=== PATIENT | female | born 1960 | race Caucasian/White ===

== ENCOUNTER 2016-08-28 11:50 | Inpatient (IN) | payer OTHER ==
[2016-08-28 14:58] VITALS: BMI 26.3
--- NOTE | 2016-08-28 15:22 | HP ---
COWS - Scale Resting Pulse: 0= [place] 80 or Below Sweatin= Chills/Flushing Restless Observation: 3= Extraneous Movement Pupil Size: 2= Moderately Dilated Bone or Joint Aches: 4=Acute Joint/Muscle Pain Runny Nose/ Eye Tearin= Runny Nose/Eyes GI Upset > 30mins: 0= None Tremor Observation: 2= Slight Tremor Visible Yawning Observation: 1= 1-2x During Session Anxiety or Irritability: 2=Irritable/Anxious Goose Flesh Skin: 0=Smooth Skin COWS Score: 17 CIWA Score - CIWA Score Nausea/Vomitin-No Nausea/No Vomiting Muscle Tremors: 4-Moderate,w/Arms Extend Anxiety: 5 Agitation: 4-Moderately Restless Paroxysmal Sweats: 2 Orientation: 0-Oriented Tacttile Disturbances: 0-None Auditory Disturbances: 0-None Visual Disturbances: 0-None Headache: 0-None Present CIWA-Ar Total Score: 15 Admission [facility] - HPI Chief Complaint: DETOX [place] FOR HEROIN,COCAINE AND ALCOHOL DEPENDENCE Allergies/Adverse Reactions: Allergies Allergy/AdvReac Type Severity Reaction Status Date / Time cefuroxime axetil Allergy Severe Verified 08/28/16 14:52 [From Ceftin] cephalexin monohydrate Allergy Severe Verified 08/28/16 14:52 [From Keflex] moxifloxacin HCl Allergy Severe Verified 08/28/16 14:52 [From Avelox] History of Present Illness: 55 Y/O H/FEMALE WITH A HX OF HEROIN,COCAINE AND ALCOHOL DEPENDENCE SEEKING DETOX [place]. Exam Limitations: No Limitations - Ebola screening Have you traveled outside of the country in the last 21 days: No Have you had contact with anyone from an Ebola affected area: No Have you been sick,other than usual withdrawal symptoms: No Do you have a fever: No - Review of Systems Constitutional: Chills, Night Sweats, Changes in sleep, Unintentional Wgt. Loss EENT: reports: Tearing, Dental Problems (MISSING TEETH/CAVITIES) Respiratory: reports: Shortness of Breath (HX ASTHMA AND COPD), Wheezing Cardiac: reports: No Symptoms Reported GI: reports: Constipated, Indigestion, Abdominal cramping : reports: Frequency Musculoskeletal: reports: Back Pain, Joint Pain, Muscle Pain Integumentary: reports: No Symptoms Reported Neuro: reports: Headache Endocrine: reports: No Symptoms Reported Hematology: reports: No Symptoms Reported Psychiatric: reports: Orientated x3, Anxious, Depressed Other Systems: Reviewed and Negative Patient History - Patient Medical History Hx Anemia: No Hx Asthma: Yes (MDI) Hx Chronic Obstructive Pulmonary Disease (COPD): Yes (MDI) Hx Cardiac Disorders: No Hx Hypertension: No (???ON/OFF 97/60 ON ADMISSION) Hx Hypercholesterolemia: No HX Cerebrovascular Accident: No Hx Seizures: No Hx Diabetes: Yes (LANTUS 16 UNITS SC; NOVOLOG SLIDING SCALE ) Hx Gastrointestinal Disorders: No Hx Liver Disease: No Hx Genitourinary Disorders: No Hx Sexually Transmitted Disorders: No Hx Renal Disease (ESRD): No Hx Thyroid Disease: No Hx Human Immunodeficiency Virus (HIV): No (NEGATIVE HX) Hx Hepatitis C: No Hx Depression: Yes (TREATED YEARS AGO BUT CURRENTLY IN TREATMENT.DECLINED PSYCH EVAL/F/U.) Hx Suicide Attempt: No (DENIES) Hx Bipolar Disorder: No Hx Schizophrenia: No - Patient Surgical History Past Surgical History: Yes Hx Neurologic Surgery: No Hx Cataract Extraction: No Hx Cardiac Surgery: No Hx Lung Surgery: No Hx Breast Surgery: No Hx Breast Biopsy: No Hx Abdominal Surgery: No Hx Appendectomy: Yes (2009) Hx Cholecystectomy: No Hx Genitourinary Surgery: No Hx Section: No Hx Orthopedic Surgery: Yes (LEFT FOOT SX DUE TO FX 2008) Hx Hysterectomy: No Anesthesia Reaction: No - PPD History Previous Implant?: Yes Documented Results: Positive w/proof Implanted On Prior [facility] Admission?: Yes Date: 06/29/16 Results: TO BE DONE PPD to be Administered?: No - Reproductive History Patient is a Female of Child Bearing Age (11 -55 yrs old): No (MENOPAUSAL WOMAN) LMP comment: 10 YEARS AGO Patient : No - Smoking Cessation Smoking history: Current every day smoker Have you smoked in the past 12 months: Yes Aproximately how many cigarettes per day: 3 Hx Chewing Tobacco Use: No Initiated information on smoking cessation: Yes 'Breaking Loose' booklet given: 08/28/16 - Substance & Tx. History Hx Alcohol Use: Yes (BEER) Hx Substance Use: Yes (HEROIN/COCAINE/MARIJUANA) Substance Use Type: Alcohol, Cocaine, Heroin, Marijuana Hx Substance Use Treatment: Yes ([facility]-DETOX) - Substances Abused Heroin Route: Inhalation Frequency: Daily Amount used: $70 Age of first use: 54 Date of Last Use: 08/28/16 Alcohol Route: Oral Frequency: Daily Amount used: 4O oz. beer Age of first use: 15 Date of Last Use: 08/27/16 Cocaine Route: Inhalation Frequency: Daily Amount used: $20 Age of first use: 54 Date of Last Use: 08/27/16 Marijuana/Hashish Route: Smoking Frequency: 1-2 times per week Amount used: 1 JOINT Age of first use: 14 Date of Last Use: 08/27/16 Family Disease History - Family Disease History Family Disease History: Diabetes: Sister Admission Physical Exam [facility] - Vital Signs Vital Signs: Vital Signs - 24 hr 08/28/16 14:56 Temperature 97.0 F L Pulse Rate 70 Respiratory 18 Rate Blood Pressure 97/60 - Physical General Appearance: Yes: Mild Distress, Anxious HEENTM: Yes: EOMI, Normocephalic, JOEL, Pharynx Normal Respiratory: Yes: Chest Non-Tender, Lungs Clear, Normal Breath Sounds, No Respiratory Distress Neck: Yes: Supple, Trachea in good position Breast: Yes: Breast Exam Deferred Cardiology: Yes: Regular Rhythm, Regular Rate, S1, S2 Abdominal: Yes: Normal Bowel Sounds, Non Tender, Soft Genitourinary: Yes: Other (N/C) Back: Yes: Within Normal Limits Musculoskeletal: Yes: full range of Motion, Gait Steady Extremities: Yes: Normal Range of Motion, Non-Tender Neurological: Yes: tie presser II-XII NML intact, Fully Oriented, Alert, Motor Strength 5/5 Integumentary: Yes: Dry, Warm Lymphatic: Yes: Within Normal Limits - Diagnostic (1) Alcohol dependence with uncomplicated withdrawal Current Visit: Yes Status: Acute (2) Cocaine dependence, uncomplicated Current Visit: Yes Status: Acute (3) Opioid dependence with withdrawal Current Visit: Yes Status: Acute (4) History of COPD Current Visit: Yes Status: Chronic (5) History of asthma Current Visit: Yes Status: Chronic (6) Type 2 diabetes mellitus Current Visit: Yes Status: Chronic Qualifiers: Diabetes mellitus complication status: without complication Cleared for Admission [facility] - Detox or Rehab [facility] Level of Care: Medically Managed Detox Regimen/Protocol: Methadone/Librium [facility] Breath Alcohol Content Breath Alcohol Content: 0 Urine Pregancy Test - Result Urine Test Results: Negative- NO Line Present Urine Drug Screen - Results Drug Screen Negative: No Urine Drug Screen Results: THC-Marijuana, CORAZON-Cocaine, OPI-Opiates, OXY- Oxycodone
[2016-08-28] MEDS ORDERED: guaiFENesin/D-METHORPHAN HB 10 ML UNIT-DOSE CUPS PO PRN (15:36)
[2016-08-28] MEDS ORDERED: P-EPHED 60MG/TRIPROLIDI 2.5MG TABLET PO PRN (15:36)
[2016-08-28] MEDS ORDERED: LOPERAMIDE HCL 2 MG CAPSULE PO PRN (15:36)
[2016-08-28] MEDS ORDERED: ACETAMINOPHEN 325 MG TABLET (FP) PO PRN (15:36)
[2016-08-28] MEDS ORDERED: chlordiazePOXIDE HCL 25 MG CAPSULE PO PRN (15:36)
[2016-08-28] MEDS ORDERED: IBUPROFEN 400 MG TABLET (FP) PO PRN (15:36)
[2016-08-28] MEDS ORDERED: MAGNESIUM HYDROX 2400MG/30ML ORAL SUSPENSION 30 ML CUP PO PRN (15:36)
[2016-08-28] MEDS ORDERED: NICOTINE POLACRILEX 2 MG GUM BC PRN (15:36)
[2016-08-28] MEDS ORDERED: MENTHOL/PHENOL 1 EACH UD MM PRN (15:36)
[2016-08-28] MEDS ORDERED: MAGNESIUM CITRATE 300 ML BOTTLE PO PRN (15:36)
[2016-08-28] MEDS ORDERED: MAG HYDROX/AL HYDROX/SIMETH 30 ML UNIT-DOSE CUP PO PRN (15:36)
[2016-08-28] MEDS ORDERED: hydrOXYzine PAMOATE 25 MG CAPSULE (FP) PO PRN (15:36)
[2016-08-28] MEDS ORDERED: METHADONE HCL 10 MG TABLET (FOR DETOX USE ONLY) PO ONE ×2 (17:00→23:00)
[2016-08-28] MEDS: chlordiazePOXIDE HCL 25 MG CAPSULE PO SCH ×2 (17:36→22:05)
[2016-08-28] MEDS: NICOTINE 14 MG/24 HOURS TOPICAL PATCH TD SCH (17:36)
--- NOTE | 2016-08-28 18:11 | PN ---
[facility] Progress Note Note: received nurse call medical condition of DM II finger stick achs with insulin sliding scale + lantus 16 units continue detox
[2016-08-28] MEDS ORDERED: INSULIN (NOVOLOG) ASPART 100 UNITS/ML 10ML VIAL ONE (21:10)
[2016-08-28] MEDS ORDERED: INSULIN (NOVOLOG MIX 70/30) 100 UNITS/ML MDV SQ ONE (21:10)
[2016-08-28] MEDS: INSULIN DETEMIR 100 UNITS/ML MDV SQ SCH (22:05)
[2016-08-28] MEDS: THIAMINE HCL 100 MG TABLET (FP) PO SCH (22:05)
[2016-08-28] MEDS: INSULIN SLIDING SCALE (NOVOLOG) 1 VIAL SQ SCH (22:11)
[2016-08-28 23:00] LABS: URINE APPEARANCE CLOUDY; URINE BILIRUBIN NEGATIVE (NEGATIVE); URINE BLOOD NEGATIVE (NEGATIVE); URINE COLOR YELLOW; URINE GLUCOSE (UA) 2+ (NEGATIVE); URINE KETONE NEGATIVE (NEGATIVE); URINE NITRITE NEGATIVE (NEGATIVE); URINE PROTEIN NEGATIVE (NEGATIVE); URINE UROBILINOGEN NEGATIVE E.U./dl (0.2-1.0)
[2016-08-28 23:04] LABS: URINE LEUK ESTERASE TRACE (NEGATIVE)
[2016-08-28 23:07] LABS: URINE HYALINE CAST 2 /lpf; URINE MUCUS RARE; URINE RBC <1 /hpf (0-3); URINE WBC 1 /hpf (3-5)
[2016-08-29] MEDS: chlordiazePOXIDE HCL 25 MG CAPSULE PO SCH ×4 (06:28→22:37)
[2016-08-29] MEDS ORDERED: INSULIN (NOVOLOG) ASPART 100 UNITS/ML 10ML VIAL ONE ×4 (07:50→22:44)
[2016-08-29] MEDS: INSULIN SLIDING SCALE (NOVOLOG) 1 VIAL SQ SCH ×4 (07:59→22:46)
--- NOTE | 2016-08-29 09:54 | PN ---
[facility] CIWA - CIWA Score Nausea/Vomitin Muscle Tremors: 3 Anxiety: 3 Agitation: 2 Paroxysmal Sweats: 2 Orientation: 0-Oriented Tacttile Disturbances: 0-None Auditory Disturbances: 0-None Visual Disturbances: 0-None Headache: 1-Very Mild CIWA-Ar Total Score: 13 S COWS - Scale Resting Pulse: 0= [place] 80 or Below Sweatin=Flushed/Facial Moisture Restless Observation: 1= Difficult to Sit Still Pupil Size: 2= Moderately Dilated Bone or Joint Aches: 0= None Runny Nose/ Eye Tearin= None GI Upset > 30mins: 2= Nausea/Diarrhea Tremor Observation of Outstretched Hands: 2= Slight Tremor Visible Yawning Observation: 0= None Anxiety or Irritability: 2=Irritable/Anxious Goose Flesh Skin: 0=Smooth Skin COWS Score: 11 [facility] Progress Note (SOAP) Objective: 08/29/16 09:53 Laboratory Tests 08/28/16 08/28/16 08/28/16 15:14 20:40 22:40 POC Glucometer 396 353 Urine Color Yellow Urine Appearance Cloudy Urine pH 6.0 Ur Specific [place] 1.014 Urine Protein Negative Urine Glucose (UA) 2+ H Urine Ketones Negative Urine Blood Negative Urine Nitrite Negative Urine Bilirubin Negative Urine Urobilinogen Negative Ur Leukocyte Esterase Trace H Urine RBC <1 Urine WBC 1 Ur Epithelial Cells Many Hyaline Casts 2 Urine Mucus Rare 08/29/16 06:30 POC Glucometer 194 Urine Color Urine Appearance Urine pH Ur Specific [place] Urine Protein Urine Glucose (UA) Urine Ketones Urine Blood Urine Nitrite Urine Bilirubin Urine Urobilinogen Ur Leukocyte Esterase Urine RBC Urine WBC Ur Epithelial Cells Hyaline Casts Urine Mucus Vital Signs - 24 hr 08/28/16 08/28/16 08/28/16 14:56 18:00 22:42 Temperature 97.0 F L 98.4 F 99.5 F Pulse Rate 70 76 81 Respiratory 18 18 16 Rate Blood Pressure 97/60 100/67 107/63 08/29/16 08/29/16 08/29/16 00:30 03:30 06:33 Temperature 97.3 F L Pulse Rate 71 Respiratory 18 18 18 Rate Blood Pressure 121/71 Assessment: 08/29/16 09:53 ongoing withdrawal Plan: continue detox protocol
[2016-08-29] MEDS ORDERED: METHADONE HCL 10 MG TABLET (FOR DETOX USE ONLY) PO SCH (10:00)
[2016-08-29] MEDS: PRENATAL VITAMINS W/ FOLIC ACID TABLET (FP) PO SCH (10:11)
[2016-08-29] MEDS: NICOTINE 14 MG/24 HOURS TOPICAL PATCH TD SCH (10:11)
[2016-08-29 10:32] LABS: MCH 27.9 pg (25.7-33.7); MCHC 33.4 g/dl (32.0-36.0); MEAN CELL VOLUME 83.8 fl (80-96); MEAN PLT VOLUME 9.6 fl (7.5-11.1); PLATELET COUNT 212 K/MM3 (134-434); RDW 14.5 % (11.6-15.6); WHITE BLOOD COUNT 6.8 K/mm3 (4.0-10.0)
[2016-08-29 10:35] LABS: ALBUMIN 3.4 g/dl (3.4-5.0); ANION GAP 8 (8-16); BILIRUBIN,TOTAL 0.2 mg/dL (0.2-1.0); CALCIUM 8.7 mg/dL (8.5-10.1); CO2 27 mmol/L (21-32); CREATININE 0.9 mg/dL (0.55-1.02); SGPT/ALT 18 U/L (12-78)
[2016-08-29 10:44] LABS: ALK PHOS 102 U/L (45-117); SGOT/AST 12 U/L (15-37)
[2016-08-29 11:01] LABS: GLUCOSE,RANDOM 307 mg/dL (74-106)
--- NOTE | 2016-08-29 12:38 | EKG ---
Test Reason : Blood Pressure : / mmHG Vent. Rate : 069 BPM Atrial Rate : 069 BPM P-R Int : 162 ms QRS Dur : 086 ms QT Int : 404 ms P-R-T Axes : 025 040 051 degrees QTc Int : 432 ms NORMAL SINUS RHYTHM NONSPECIFIC ST ABNORMALITY ABNORMAL ECG NO PREVIOUS ECGS AVAILABLE Confirmed by WESLEY ART MD ([id number]) on 08/29/2016 12:38:35 PM Referred By: Confirmed By:WESLEY ART MD
[2016-08-29] MEDS: THIAMINE HCL 100 MG TABLET (FP) PO SCH (22:37)
[2016-08-29] MEDS: diphenhydrAMINE HCL 50 MG CAPSULE PO PRN (22:38)
[2016-08-29] MEDS: INSULIN DETEMIR 100 UNITS/ML MDV SQ SCH (22:38)
[2016-08-30] MEDS: chlordiazePOXIDE HCL 25 MG CAPSULE PO SCH ×2 (05:34→10:54)
[2016-08-30] MEDS ORDERED: INSULIN (NOVOLOG) ASPART 100 UNITS/ML 10ML VIAL ONE ×4 (07:22→21:41)
[2016-08-30] MEDS: INSULIN SLIDING SCALE (NOVOLOG) 1 VIAL SQ SCH ×4 (08:03→22:25)
[2016-08-30] MEDS: METHADONE HCL 5 MG TABLET (FOR DETOX USE ONLY) PO SCH (10:53)
[2016-08-30] MEDS: NICOTINE 14 MG/24 HOURS TOPICAL PATCH TD SCH (10:54)
[2016-08-30] MEDS: PRENATAL VITAMINS W/ FOLIC ACID TABLET (FP) PO SCH (10:54)
--- NOTE | 2016-08-30 14:16 | PN ---
S CIWA - CIWA Score Nausea/Vomitin Muscle Tremors: 3 Anxiety: 3 Agitation: 3 Paroxysmal Sweats: 2 Orientation: 0-Oriented Tacttile Disturbances: 0-None Auditory Disturbances: 1-Very Mild Visual Disturbances: 1-Very Mild Sensitivity Headache: 2-Mild CIWA-Ar Total Score: 18 [facility] COWS - Scale Resting Pulse: 0= [place] 80 or Below Sweatin= Chills/Flushing Restless Observation: 3= Extraneous Movement Pupil Size: 1= Pupils >than Normal Bone or Joint Aches: 2= Severe Diffuse Aches Runny Nose/ Eye Tearin= Runny Nose/Eyes GI Upset > 30mins: 2= Nausea/Diarrhea Tremor Observation of Outstretched Hands: 2= Slight Tremor Visible Yawning Observation: 1= 1-2x During Session Anxiety or Irritability: 2=Irritable/Anxious Goose Flesh Skin: 0=Smooth Skin COWS Score: 16 S Progress Note (SOAP) Subjective: ALERT,IRRITABLE,ANXIOUS,INTERRUPTED SLEEP,TREMOR,PAIN IN BODY AND BACK Objective: 08/30/16 14:13 Vital Signs Temperature 97.5 F L 08/30/16 10:00 Pulse Rate 71 08/30/16 10:00 Respiratory Rate 20 08/30/16 10:00 Blood Pressure 134/75 08/30/16 10:00 O2 Sat by Pulse Oximetry (%) EKG NSR,INVERTED T IN 3 NO CHEST PAIN,NO SOB,NO DIZZINESS Laboratory Last Values WBC 6.8 K/mm3 (4.0-10.0) 08/29/16 06:00 RBC 4.52 M/mm3 (3.60-5.2) 08/29/16 06:00 Hgb 12.6 GM/dL (10.7-15.3) 08/29/16 06:00 Hct 37.9 % (32.4-45.2) 08/29/16 06:00 MCV 83.8 fl (80-96) 08/29/16 06:00 MCHC 33.4 g/dl (32.0-36.0) 08/29/16 06:00 RDW 14.5 % (11.6-15.6) 08/29/16 06:00 Plt Count 212 K/MM3 (134-434) 08/29/16 06:00 MPV 9.6 fl (7.5-11.1) 08/29/16 06:00 Sodium 135 mmol/L (136-145) L 08/29/16 06:00 Potassium 3.9 mmol/L (3.5-5.1) 08/29/16 06:00 Chloride 100 mmol/L (98-107) 08/29/16 06:00 Carbon Dioxide 27 mmol/L (21-32) 08/29/16 06:00 Anion Gap 8 (8-16) 08/29/16 06:00 BUN 15 mg/dL (7-18) 08/29/16 06:00 Creatinine 0.9 mg/dL (0.55-1.02) 08/29/16 06:00 Creat Clearance w eGFR > 60 (>60) 08/29/16 06:00 POC Glucometer 268 UNITS (()) 08/30/16 05:34 Random Glucose 307 mg/dL (74-106) H* 08/29/16 06:00 Calcium 8.7 mg/dL (8.5-10.1) 08/29/16 06:00 Total Bilirubin 0.2 mg/dL (0.2-1.0) 08/29/16 06:00 AST 12 U/L (15-37) L 08/29/16 06:00 ALT 18 U/L (12-78) 08/29/16 06:00 Alkaline Phosphatase 102 U/L (45-117) 08/29/16 06:00 Total Protein 7.0 g/dl (6.4-8.2) 08/29/16 06:00 Albumin 3.4 g/dl (3.4-5.0) 08/29/16 06:00 Urine Color Yellow 08/28/16 22:40 Urine Appearance Cloudy 08/28/16 22:40 Urine pH 6.0 (5.0-8.0) 08/28/16 22:40 Ur Specific [place] 1.014 (1.001-1.035) 08/28/16 22:40 Urine Protein Negative (NEGATIVE) 08/28/16 22:40 Urine Glucose (UA) 2+ (NEGATIVE) H 08/28/16 22:40 Urine Ketones Negative (NEGATIVE) 08/28/16 22:40 Urine Blood Negative (NEGATIVE) 08/28/16 22:40 Urine Nitrite Negative (NEGATIVE) 08/28/16 22:40 Urine Bilirubin Negative (NEGATIVE) 08/28/16 22:40 Urine Urobilinogen Negative E.U./dl (0.2-1.0) 08/28/16 22:40 Ur Leukocyte Esterase Trace (NEGATIVE) H 08/28/16 22:40 Urine RBC <1 /hpf (0-3) 08/28/16 22:40 Urine WBC 1 /hpf (3-5) 08/28/16 22:40 Ur Epithelial Cells Many /hpf (FEW) 08/28/16 22:40 Hyaline Casts 2 /lpf 08/28/16 22:40 Urine Mucus Rare 08/28/16 22:40 RPR Titer Nonreactive (NONREACTIVE) 08/29/16 06:00 Assessment: 08/30/16 14:15 WITHDRAWAL SYMPTOM Plan: CONTINUE DETOX,BGM MONITORING WITH INSULIN COVERAGE
[2016-08-30] MEDS: chlordiazePOXIDE 5 MG CAPSULE PO SCH ×2 (17:46→22:24)
[2016-08-30] MEDS: INSULIN DETEMIR 100 UNITS/ML MDV SQ SCH (22:24)
[2016-08-30] MEDS: diphenhydrAMINE HCL 50 MG CAPSULE PO PRN (22:24)
[2016-08-30] MEDS: THIAMINE HCL 100 MG TABLET (FP) PO SCH (22:26)
[2016-08-31] MEDS: chlordiazePOXIDE 5 MG CAPSULE PO SCH ×2 (05:59→10:44)
[2016-08-31] MEDS ORDERED: INSULIN (NOVOLOG) ASPART 100 UNITS/ML 10ML VIAL ONE ×4 (07:34→21:19)
[2016-08-31] MEDS: INSULIN SLIDING SCALE (NOVOLOG) 1 VIAL SQ SCH ×4 (07:39→21:21)
[2016-08-31] MEDS: PRENATAL VITAMINS W/ FOLIC ACID TABLET (FP) PO SCH (10:43)
[2016-08-31] MEDS: METHADONE HCL 5 MG TABLET (FOR DETOX USE ONLY) PO SCH (10:43)
[2016-08-31] MEDS: NICOTINE 14 MG/24 HOURS TOPICAL PATCH TD SCH (10:50)
--- NOTE | 2016-08-31 13:42 | PN ---
[facility] Progress Note (SOAP) Subjective: ALERT,IRRITABLE,INTERRUPTED SLEEP Objective: 08/31/16 13:41 Vital Signs Temperature 98.1 F 08/31/16 10:00 Pulse Rate 77 08/31/16 10:00 Respiratory Rate 18 08/31/16 10:00 Blood Pressure 111/70 08/31/16 10:00 O2 Sat by Pulse Oximetry (%) Assessment: 08/31/16 13:41 WITHDRAWAL SYMPTOM Plan: CONTINUE DETOX
[2016-08-31] MEDS: chlordiazePOXIDE HCL 10 MG CAPSULE PO SCH ×2 (17:45→22:45)
[2016-08-31] MEDS: INSULIN DETEMIR 100 UNITS/ML MDV SQ SCH (21:22)
[2016-08-31] MEDS: THIAMINE HCL 100 MG TABLET (FP) PO SCH (21:23)
[2016-08-31] MEDS: diphenhydrAMINE HCL 50 MG CAPSULE PO PRN (21:24)
[2016-09-01] MEDS: chlordiazePOXIDE HCL 10 MG CAPSULE PO SCH ×2 (06:29→10:20)
[2016-09-01] MEDS: INSULIN SLIDING SCALE (NOVOLOG) 1 VIAL SQ SCH ×4 (07:21→22:40)
[2016-09-01] MEDS ORDERED: INSULIN (NOVOLOG) ASPART 100 UNITS/ML 10ML VIAL ONE ×3 (07:28→17:35)
[2016-09-01] MEDS ORDERED: METHADONE HCL 10 MG TABLET (FOR DETOX USE ONLY) PO SCH (10:00)
[2016-09-01] MEDS: NICOTINE 14 MG/24 HOURS TOPICAL PATCH TD SCH (10:19)
[2016-09-01] MEDS: PRENATAL VITAMINS W/ FOLIC ACID TABLET (FP) PO SCH (10:20)
--- NOTE | 2016-09-01 13:37 | PN ---
S Progress Note (SOAP) Subjective: ALERT,IRRITABLE,INTERRUPTED SLEEP Objective: 09/01/16 13:36 Vital Signs Temperature 98.9 F 09/01/16 10:05 Pulse Rate 90 09/01/16 10:05 Respiratory Rate 18 09/01/16 10:05 Blood Pressure 105/76 09/01/16 10:05 O2 Sat by Pulse Oximetry (%) BGM 269 Assessment: 09/01/16 13:36 WITHDRAWAL SYMPTOM Plan: CONTINUE DETOX,BGM MONITORING WITH INSULIN COVERAGE,DISCHARGE IN AM
[2016-09-01 17:50] VITALS: TEMP 98.2
[2016-09-01] MEDS: THIAMINE HCL 100 MG TABLET (FP) PO SCH (22:39)
[2016-09-01] MEDS: INSULIN DETEMIR 100 UNITS/ML MDV SQ SCH (22:40)
[2016-09-01] MEDS: diphenhydrAMINE HCL 50 MG CAPSULE PO PRN (22:40)
[2016-09-02] MEDS ORDERED: METHADONE HCL 5 MG TABLET (FOR DETOX USE ONLY) PO SCH (06:00)
[2016-09-02 06:59] VITALS: BP 100/59; PULSE 75
[2016-09-02] MEDS ORDERED: INSULIN (NOVOLOG) ASPART 100 UNITS/ML 10ML VIAL ONE (07:16)
[2016-09-02] MEDS: INSULIN SLIDING SCALE (NOVOLOG) 1 VIAL SQ SCH (07:17)
--- NOTE | 2016-09-02 09:38 | DS ---
[facility] Detox Discharge Summary Admission Date: 08/28/16 Discharge Date: 09/02/16 - History Present History: Alcohol Dependence, Cocaine Dependence, Opioid Dependence - Physical Exam Results Vital Signs: Vital Signs Temperature 98.2 F 09/02/16 06:58 Pulse Rate 75 09/02/16 06:58 Respiratory Rate 18 09/02/16 06:58 Blood Pressure 100/59 09/02/16 06:58 O2 Sat by Pulse Oximetry (%) - Treatment Hospital Course: Detox Protocol Followed, Detoxed Safely, Responded well, Discharged Condition Good - Medication Discharge Medications: Ambulatory Orders Insulin Aspart [Novolog] 12 unit SQ TIDCM 06/27/16 Insulin Glargine,Hum.rec.anlog [Lantus Solostar PEN (NF)] 16 units SQ HS - Diagnosis (1) Alcohol dependence with uncomplicated withdrawal Current Visit: Yes Status: Chronic (2) Cocaine dependence, uncomplicated Current Visit: Yes Status: Chronic (3) Opioid dependence with withdrawal Current Visit: Yes Status: Chronic (4) History of asthma Current Visit: Yes Status: Chronic (5) Type 2 diabetes mellitus Current Visit: Yes Status: Chronic Qualifiers: Diabetes mellitus complication status: without complication - AMA Did Patient Leave Against Medical Advice: No
== END 2016-09-02 10:15 | disposition home or self-care (01) | DRG 773 ==
LOC: YASAS 11:50 → Y6N 16:23
PROVIDERS: ADMIT Internal Medicine Addiction Medicine; ATTEND Internal Medicine Addiction Medicine
PROC: HZ2ZZZZ Detoxification Services for Substance Abuse Treatment (ICD-10-PCS; principal; 2016-08-28)
DX: F11.23 Opioid dependence with withdrawal (principal); F10.230 Alcohol dependence with withdrawal, uncomplicated; F14.20 Cocaine dependence, uncomplicated; E11.9 Type 2 diabetes mellitus without complications; Z79.4 Long term (current) use of insulin; J45.909 Unspecified asthma, uncomplicated; J44.9 Chronic obstructive pulmonary disease, unspecified; Z72.0 Tobacco use
CPT/HCPCS: 36415; 80053; 81003; 81015; 85027; 86593; 93005; 93010

== ENCOUNTER 2016-10-20 11:48 | Inpatient (IN) | payer OTHER ==
[2016-10-20 12:04] VITALS: BMI 25.2
--- NOTE | 2016-10-20 15:35 | HP ---
COWS - Scale Resting Pulse: 0= [place] 80 or Below Sweatin= Chills/Flushing Restless Observation: 3= Extraneous Movement Pupil Size: 2= Moderately Dilated Bone or Joint Aches: 4=Acute Joint/Muscle Pain Runny Nose/ Eye Tearin= Nasal Congestion GI Upset > 30mins: 2= Nausea/Diarrhea Tremor Observation: 2= Slight Tremor Visible Yawning Observation: 2= >3x During Session Anxiety or Irritability: 2=Irritable/Anxious Goose Flesh Skin: 0=Smooth Skin COWS Score: 19 CIWA Score - CIWA Score Nausea/Vomitin-Int. Nausea w/Dry Heave Muscle Tremors: 4-Moderate,w/Arms Extend Anxiety: 4-Mod. Anxious/Guarded Agitation: 3 Paroxysmal Sweats: 1-Minimal Palms Moist Orientation: 0-Oriented Tacttile Disturbances: 3-Moderate Itch/Numb/Burn Auditory Disturbances: 0-None Visual Disturbances: 0-None Headache: 0-None Present CIWA-Ar Total Score: 19 Admission [facility] - HPI Chief Complaint: DETOX [place] FOR HEROIN AND ALCOHOL DEPENDENCE Allergies/Adverse Reactions: Allergies Allergy/AdvReac Type Severity Reaction Status Date / Time cefuroxime axetil Allergy Severe fever Verified 10/20/16 12:23 [From Ceftin] cephalexin monohydrate Allergy Severe fever Verified 10/20/16 12:23 [From Keflex] moxifloxacin HCl Allergy Severe Rash Verified 10/20/16 12:23 [From Avelox] History of Present Illness: 55 Y/O H/F WITH A HX OF HEROIN AND ALCOHOL DEPENDENCE SEEKING DETOX [place] Exam Limitations: No Limitations - Ebola screening Have you traveled outside of the country in the last 21 days: No Have you had contact with anyone from an Ebola affected area: No Have you been sick,other than usual withdrawal symptoms: No Do you have a fever: No - Review of Systems Constitutional: Chills, Night Sweats, Changes in sleep, Unintentional Wgt. Loss EENT: reports: Tearing, Nose Congestion, Dental Problems (MISSING TEETH/CAVITIES ) Respiratory: reports: Shortness of Breath (HX ASTHMA), Wheezing Cardiac: reports: Lightheadedness GI: reports: Constipated, Diarrhea, Nausea, Vomiting : reports: Frequency Musculoskeletal: reports: Back Pain, Joint Pain, Muscle Pain Integumentary: reports: Dryness Neuro: reports: Numbness, Tingling, Tremors, Unsteady Gait, Dizziness Endocrine: reports: No Symptoms Reported Hematology: reports: No Symptoms Reported Psychiatric: reports: Orientated x3, Anxious, Depressed Other Systems: Reviewed and Negative Patient History - Patient Medical History Hx Anemia: No Hx Asthma: Yes (MDI) Hx Chronic Obstructive Pulmonary Disease (COPD): Yes Hx Cardiac Disorders: No Hx Hypertension: No Hx Hypercholesterolemia: No HX Cerebrovascular Accident: No Hx Seizures: No Hx Diabetes: Yes (IDDM) Hx Gastrointestinal Disorders: No Hx Liver Disease: No Hx Genitourinary Disorders: No Hx Sexually Transmitted Disorders: No Hx Renal Disease (ESRD): No Hx Thyroid Disease: No Hx Human Immunodeficiency Virus (HIV): No (NEGATIVE HX) Hx Hepatitis C: No Hx Depression: Yes (NOT CURRENTLY ON MEDS) Hx Suicide Attempt: No (DENIES) Hx Bipolar Disorder: No Hx Schizophrenia: No - Patient Surgical History Past Surgical History: Yes Hx Neurologic Surgery: No Hx Cataract Extraction: No Hx Cardiac Surgery: No Hx Lung Surgery: No Hx Breast Surgery: No Hx Breast Biopsy: No Hx Abdominal Surgery: No Hx Appendectomy: Yes (2009) Hx Cholecystectomy: No Hx Genitourinary Surgery: No Hx Section: No Hx Orthopedic Surgery: Yes (LEFT FOOT SX DUE TO FX 2008) Hx Hysterectomy: No Anesthesia Reaction: No - PPD History Previous Implant?: Yes Documented Results: Negative w/proof Implanted On Prior [facility] Admission?: Yes Date: 06/29/16 Results: 0 mm PPD to be Administered?: No - Reproductive History Patient is a Female of Child Bearing Age (11 -55 yrs old): No (MENOPAUSAL WOMAN) LMP comment: OVER TEN YRS AGO Patient : No - Smoking Cessation Smoking history: Current every day smoker Have you smoked in the past 12 months: Yes Aproximately how many cigarettes per day: 3 Hx Chewing Tobacco Use: No Initiated information on smoking cessation: Yes 'Breaking Loose' booklet given: 10/20/16 - Substance & Tx. History Hx Alcohol Use: Yes (BEER) Hx Substance Use: Yes (CRACK/HEROIN) Substance Use Type: Alcohol, Cocaine, Heroin Hx Substance Use Treatment: Yes ([facility]-DETOX) - Substances Abused Heroin Route: Inhalation Frequency: Daily Amount used: 2 bags Age of first use: 53 Date of Last Use: 10/20/16 Crack Route: Smoking Frequency: Daily Amount used: $30 Age of first use: 50 Date of Last Use: 10/19/16 Alcohol-beer Route: Oral Frequency: Daily Amount used: 2 (40 oz.) Age of first use: 16 Date of Last Use: 10/19/16 Family Disease History - Family Disease History Family Disease History: Diabetes: Sister Admission Physical Exam [facility] - Vital Signs Vital Signs: Vital Signs - 24 hr 10/20/16 11:59 Temperature 97.7 F Pulse Rate 70 Respiratory 18 Rate Blood Pressure 111/72 - Physical General Appearance: Yes: Moderate Distress, Irritable, Anxious HEENTM: Yes: EOMI, Normocephalic, JOEL, Pharynx Normal Respiratory: Yes: Chest Non-Tender, Lungs Clear, Normal Breath Sounds, No Respiratory Distress Neck: Yes: No masses,lesions,Nodules, Supple, Trachea in good position Breast: Yes: Breast Exam Deferred Cardiology: Yes: Regular Rhythm, Regular Rate, S1, S2 Abdominal: Yes: Normal Bowel Sounds, Non Tender, Soft Genitourinary: Yes: Other (N/C) Back: Yes: Within Normal Limits Musculoskeletal: Yes: full range of Motion, Gait Steady Extremities: Yes: Normal Range of Motion, Non-Tender Neurological: Yes: tab builder II-XII NML intact, Fully Oriented, Alert, Motor Strength 5/5 Integumentary: Yes: Dry, Warm Lymphatic: Yes: Within Normal Limits - Diagnostic (1) Alcohol dependence with uncomplicated withdrawal Current Visit: Yes Status: Acute (2) Cocaine dependence, uncomplicated Current Visit: Yes Status: Acute (3) History of COPD Current Visit: Yes Status: Chronic (4) History of asthma Current Visit: Yes Status: Chronic (5) Opioid dependence with withdrawal Current Visit: Yes Status: Acute (6) Type 2 diabetes mellitus Current Visit: No Status: Chronic Qualifiers: Diabetes mellitus complication status: without complication Cleared for Admission S - Detox or Rehab [facility] Level of Care: Medically Managed Detox Regimen/Protocol: Methadone/Librium [facility] Breath Alcohol Content Breath Alcohol Content: 0 Urine Pregancy Test - Result Urine Test Results: Negative- NO Line Present Urine Drug Screen - Results Drug Screen Negative: No Urine Drug Screen Results: CORAZON-Cocaine, OPI-Opiates, OXY-Oxycodone
[2016-10-20] MEDS ORDERED: chlordiazePOXIDE HCL 25 MG CAPSULE PO PRN (15:44)
[2016-10-20] MEDS ORDERED: MAGNESIUM HYDROX 2400MG/30ML ORAL SUSPENSION 30 ML CUP PO PRN (15:44)
[2016-10-20] MEDS ORDERED: hydrOXYzine PAMOATE 25 MG CAPSULE (FP) PO PRN (15:44)
[2016-10-20] MEDS ORDERED: MENTHOL/PHENOL 1 EACH UD MM PRN (15:44)
[2016-10-20] MEDS ORDERED: NICOTINE POLACRILEX 2 MG GUM BC PRN (15:44)
[2016-10-20] MEDS ORDERED: MAGNESIUM CITRATE 300 ML BOTTLE PO PRN (15:44)
[2016-10-20] MEDS ORDERED: guaiFENesin/D-METHORPHAN HB 10 ML UNIT-DOSE CUPS PO PRN (15:44)
[2016-10-20] MEDS ORDERED: P-EPHED 60MG/TRIPROLIDI 2.5MG TABLET PO PRN (15:44)
[2016-10-20] MEDS ORDERED: LOPERAMIDE HCL 2 MG CAPSULE PO PRN (15:44)
[2016-10-20] MEDS ORDERED: MAG HYDROX/AL HYDROX/SIMETH 30 ML UNIT-DOSE CUP PO PRN (15:44)
[2016-10-20] MEDS ORDERED: ACETAMINOPHEN 325 MG TABLET (FP) PO PRN (15:44)
[2016-10-20] MEDS ORDERED: diphenhydrAMINE HCL 50 MG CAPSULE PO PRN (15:44)
[2016-10-20] MEDS ORDERED: IBUPROFEN 400 MG TABLET (FP) PO PRN (15:44)
[2016-10-20] MEDS ORDERED: METHADONE HCL 10 MG TABLET (FOR DETOX USE ONLY) PO ONE ×2 (16:15→23:00)
[2016-10-20] MEDS ORDERED: INSULIN (NOVOLOG) ASPART 100 UNITS/ML 10ML VIAL ONE ×2 (17:51→21:50)
[2016-10-20] MEDS: chlordiazePOXIDE HCL 25 MG CAPSULE PO SCH ×2 (17:53→22:34)
[2016-10-20] MEDS: NICOTINE 14 MG/24 HOURS TOPICAL PATCH TD SCH (17:53)
[2016-10-20] MEDS: INSULIN SLIDING SCALE (NOVOLOG) 1 VIAL SQ SCH ×2 (17:54→21:58)
[2016-10-20] MEDS: INSULIN DETEMIR 100 UNITS/ML MDV SQ SCH (21:57)
[2016-10-20] MEDS: THIAMINE HCL 100 MG TABLET (FP) PO SCH (22:33)
[2016-10-20 23:06] LABS: URINE APPEARANCE CLEAR; URINE BILIRUBIN NEGATIVE (NEGATIVE); URINE BLOOD NEGATIVE (NEGATIVE); URINE COLOR YELLOW; URINE GLUCOSE (UA) 1+ (NEGATIVE); URINE KETONE NEGATIVE (NEGATIVE); URINE LEUK ESTERASE NEGATIVE (NEGATIVE); URINE NITRITE NEGATIVE (NEGATIVE); URINE PROTEIN NEGATIVE (NEGATIVE); URINE UROBILINOGEN NEGATIVE E.U./dl (0.2-1.0)
[2016-10-21] MEDS: chlordiazePOXIDE HCL 25 MG CAPSULE PO SCH ×4 (05:30→22:53)
[2016-10-21] MEDS: INSULIN SLIDING SCALE (NOVOLOG) 1 VIAL SQ SCH ×4 (07:50→22:54)
[2016-10-21] MEDS ORDERED: METHADONE HCL 10 MG TABLET (FOR DETOX USE ONLY) PO SCH (10:00)
--- NOTE | 2016-10-21 10:19 | PN ---
[facility] CIWA - CIWA Score Nausea/Vomitin-No Nausea/No Vomiting Muscle Tremors: 4-Moderate,w/Arms Extend Anxiety: 3 Agitation: 4-Moderately Restless Paroxysmal Sweats: 3 Orientation: 0-Oriented Tacttile Disturbances: 0-None Auditory Disturbances: 0-None Visual Disturbances: 0-None Headache: 1-Very Mild CIWA-Ar Total Score: 15 S COWS - Scale Resting Pulse: 0= [place] 80 or Below Sweatin=Flushed/Facial Moisture Restless Observation: 1= Difficult to Sit Still Pupil Size: 0= Normal to Room Light Bone or Joint Aches: 2= Severe Diffuse Aches Runny Nose/ Eye Tearin= Runny Nose/Eyes GI Upset > 30mins: 2= Nausea/Diarrhea Tremor Observation of Outstretched Hands: 2= Slight Tremor Visible Yawning Observation: 2= >3x During Session Anxiety or Irritability: 2=Irritable/Anxious Goose Flesh Skin: 3=Piloerection COWS Score: 18 [facility] Progress Note (SOAP) Subjective: sweats shakes interrupted sleep body aches tired Objective: 10/21/16 10:17 Vital Signs Temperature 98.1 F 10/21/16 10:15 Pulse Rate 76 10/21/16 10:15 Respiratory Rate 16 10/21/16 10:15 Blood Pressure 116/54 10/21/16 10:15 O2 Sat by Pulse Oximetry (%) Laboratory Tests 10/20/16 10/21/16 22:50 06:25 POC Glucometer 249 Urine Color Yellow Urine Appearance Clear Urine pH 6.0 Ur Specific [place] 1.021 Urine Protein Negative Urine Glucose (UA) 1+ H Urine Ketones Negative Urine Blood Negative Urine Nitrite Negative Urine Bilirubin Negative Urine Urobilinogen Negative Ur Leukocyte Esterase Negative labs pending awake/alert lying in bed no acute distress Assessment: 10/21/16 10:18 withdrawals sx Plan: continue detox increase fluids labs pending
[2016-10-21] MEDS: PRENATAL VITAMINS W/ FOLIC ACID TABLET (FP) PO SCH (10:23)
[2016-10-21] MEDS: NICOTINE 14 MG/24 HOURS TOPICAL PATCH TD SCH (10:23)
[2016-10-21 10:40] LABS: MCH 27.2 pg (25.7-33.7); MCHC 32.5 g/dl (32.0-36.0); MEAN CELL VOLUME 83.7 fl (80-96); MEAN PLT VOLUME 9.9 fl (7.5-11.1); PLATELET COUNT 205 K/MM3 (134-434); RDW 14.4 % (11.6-15.6); WHITE BLOOD COUNT 5.6 K/mm3 (4.0-10.0)
[2016-10-21 10:45] LABS: ALBUMIN 3.9 g/dl (3.4-5.0); ALK PHOS 122 U/L (45-117); ANION GAP 9 (8-16); BILIRUBIN,TOTAL 0.3 mg/dL (0.2-1.0); CO2 32 mmol/L (21-32); CREATININE 0.9 mg/dL (0.55-1.02); GLUCOSE,RANDOM 283 mg/dL (74-106); SGOT/AST 14 U/L (15-37); SGPT/ALT 16 U/L (12-78)
--- NOTE | 2016-10-21 11:07 | EKG ---
Test Reason : Blood Pressure : / mmHG Vent. Rate : 075 BPM Atrial Rate : 075 BPM P-R Int : 168 ms QRS Dur : 082 ms QT Int : 396 ms P-R-T Axes : 033 044 046 degrees QTc Int : 442 ms NORMAL SINUS RHYTHM NORMAL ECG WHEN COMPARED WITH ECG OF 28-AUG-2016 17:31, NO SIGNIFICANT CHANGE WAS FOUND Confirmed by PRAMOD GUNDERSON MD ([id number]) on 10/21/2016 11:07:18 AM Referred By: Salvador Schaeffer Confirmed By:PRAMOD GUNDERSON MD
[2016-10-21] MEDS ORDERED: INSULIN (NOVOLOG) ASPART 100 UNITS/ML 10ML VIAL ONE ×3 (11:26→21:34)
--- NOTE | 2016-10-21 13:04 | CONSULT ---
[facility] Psychiatric Consult - Data Date of interview: 10/21/16 Admission source: [facility] Identifying data: Readmission to [facility] for this 55 y/o female seeking detox treatment on for alcohol,heroin and cocaine (crack) dependence.Patient is single,a mother of three,domiciled,unemployed and supported on personal funds (SSI was cancelled according to the patient). Substance Abuse History: - Smoking Cessation. Smoking history: Current every day smoker. Have you smoked in the past 12 months: Yes. Aproximately how many cigarettes per day: 3. Hx Chewing Tobacco Use: No. Initiated information on smoking cessation: Yes. 'Breaking Loose' booklet given: 10/20/16. - Substance & Tx. History. Hx Alcohol Use: Yes (BEER). Hx Substance Use: Yes (CRACK/HEROIN ). Substance Use Type: Alcohol, Cocaine, Heroin. Hx Substance Use Treatment: Yes ([facility]). - Substances Abused. Heroin. Route: Inhalation. Frequency: Daily. Amount used: 2 bags. Age of first use: 53. Date of Last Use : 10/20/16. Crack. Route: Smoking. Frequency: Daily. Amount used: $30. Age of first use: 50. Date of Last Use: 10/19/16. Alcohol-beer. Route: Oral. Frequency: Daily. Amount used: 2 (40 oz.). Age of first use: 16. Date of Last Use: 10/19/16. Confirmed in this session by the patient. Medical History: Bronchial asthma,COPD,dibetes mellitus and history of appendectomy (2009). Psychiatric History: Patient denies. Physical/Sexual Abuse/Trauma History: Patient denies. Additional Comment: Urine Drug Screen Results: CORAZON-Cocaine, OPI-Opiates, OXY- Oxycodone.Noted. Mental Status Exam - Mental Status Exam Alert and Oriented to: Time, Place, Person Cognitive Function: Good Patient Appearance: Well Groomed Mood: Hostile, Irritable Affect: Normal Range Patient Behavior: Passive, Fatigued, Uncooperative Speech Pattern: Clear Voice Loudness: Normal Thought Process: Goal Oriented Thought Disorder: Not Present Hallucinations: Denies Suicidal Ideation: Denies Homicidal Ideation: Denies Insight/Judgement: Poor Sleep: Well Muscle strength/Tone: Normal Gait/Station: Normal Psychiatric Findings - Problem List ([place] 1, 2,3) (1) Alcohol dependence with uncomplicated withdrawal Current Visit: Yes Status: Acute (2) Cocaine dependence, uncomplicated Current Visit: Yes Status: Acute (3) Opioid dependence with withdrawal Current Visit: Yes Status: Acute (4) Nicotine dependence Current Visit: Yes Status: Acute (5) History of COPD Current Visit: Yes Status: Chronic (6) History of asthma Current Visit: Yes Status: Chronic (7) Type 2 diabetes mellitus Current Visit: Yes Status: Chronic Qualifiers: Diabetes mellitus complication status: without complication - Initial Treatment Plan Initial Treatment Plan: Psychoeducation.Detoxification.Observation.
[2016-10-21] MEDS: THIAMINE HCL 100 MG TABLET (FP) PO SCH (22:53)
[2016-10-21] MEDS: INSULIN DETEMIR 100 UNITS/ML MDV SQ SCH (22:53)
[2016-10-22] MEDS: chlordiazePOXIDE HCL 25 MG CAPSULE PO SCH ×2 (05:40→10:50)
[2016-10-22] MEDS: METHADONE HCL 5 MG TABLET (FOR DETOX USE ONLY) PO SCH (10:45)
[2016-10-22] MEDS: PRENATAL VITAMINS W/ FOLIC ACID TABLET (FP) PO SCH (10:45)
[2016-10-22] MEDS: NICOTINE 14 MG/24 HOURS TOPICAL PATCH TD SCH (10:46)
[2016-10-22] MEDS: INSULIN SLIDING SCALE (NOVOLOG) 1 VIAL SQ SCH ×5 (11:01→23:10)
[2016-10-22] MEDS ORDERED: INSULIN (NOVOLOG) ASPART 100 UNITS/ML 10ML VIAL ONE ×3 (11:30→21:38)
[2016-10-22] MEDS ORDERED: TRIMETHOBENZAMIDE HCL 200MG/2ML INJ IM PRN (11:32)
--- NOTE | 2016-10-22 11:36 | PN ---
[facility] CIWA - CIWA Score Nausea/Vomitin-Int. Nausea w/Dry Heave Muscle Tremors: 3 Anxiety: 3 Agitation: 3 Paroxysmal Sweats: 3 Orientation: 0-Oriented Tacttile Disturbances: 1-Very Mild Itch/Numbness Auditory Disturbances: 0-None Visual Disturbances: 0-None Headache: 0-None Present CIWA-Ar Total Score: 17 [facility] COWS - Scale Resting Pulse: 1= NM 81-100 Sweatin=Flushed/Facial Moisture Restless Observation: 1= Difficult to Sit Still Pupil Size: 1= Pupils >than Normal Bone or Joint Aches: 1= Mild Discomfort Runny Nose/ Eye Tearin= Nasal Congestion GI Upset > 30mins: 3= Vomiting/Diarrhea Tremor Observation of Outstretched Hands: 2= Slight Tremor Visible Yawning Observation: 0= None Anxiety or Irritability: 2=Irritable/Anxious Goose Flesh Skin: 0=Smooth Skin COWS Score: 14 S Progress Note (SOAP) Subjective: interrupted sleep, sweats, shakes, nausea, vomiting Objective: 10/22/16 11:34 Vital Signs Temperature 98.6 F 10/22/16 10:20 Pulse Rate 77 10/22/16 10:20 Respiratory Rate 16 10/22/16 10:20 Blood Pressure 158/86 10/22/16 10:20 O2 Sat by Pulse Oximetry (%) Laboratory Tests 10/20/16 10/20/16 10/21/16 06:00 22:50 06:00 WBC 5.6 RBC 4.95 Hgb 13.4 Hct 41.4 MCV 83.7 MCHC 32.5 RDW 14.4 Plt Count 205 MPV 9.9 Sodium Potassium Chloride Carbon Dioxide Anion Gap BUN Creatinine Creat Clearance w eGFR POC Glucometer Random Glucose Calcium Total Bilirubin AST ALT Alkaline Phosphatase Total Protein Albumin Urine Color Yellow Urine Appearance Clear Urine pH 6.0 Ur Specific [place] 1.021 Urine Protein Negative Urine Glucose (UA) 1+ H Urine Ketones Negative Urine Blood Negative Urine Nitrite Negative Urine Bilirubin Negative Urine Urobilinogen Negative Ur Leukocyte Esterase Negative RPR Titer Hepatitis C Antibody 0.3 10/21/16 10/21/16 10/21/16 06:00 06:00 06:25 WBC RBC Hgb Hct MCV MCHC RDW Plt Count MPV Sodium 136 Potassium 3.4 L Chloride 95 L Carbon Dioxide 32 Anion Gap 9 BUN 9 D Creatinine 0.9 Creat Clearance w eGFR > 60 POC Glucometer 249 Random Glucose 283 H Calcium 10.0 Total Bilirubin 0.3 D AST 14 L ALT 16 Alkaline Phosphatase 122 H Total Protein 8.0 Albumin 3.9 Urine Color Urine Appearance Urine pH Ur Specific [place] Urine Protein Urine Glucose (UA) Urine Ketones Urine Blood Urine Nitrite Urine Bilirubin Urine Urobilinogen Ur Leukocyte Esterase RPR Titer Nonreactive Hepatitis C Antibody 10/21/16 10/21/16 10/21/16 11:22 16:38 21:18 WBC RBC Hgb Hct MCV MCHC RDW Plt Count MPV Sodium Potassium Chloride Carbon Dioxide Anion Gap BUN Creatinine Creat Clearance w eGFR POC Glucometer 305 298 270 Random Glucose Calcium Total Bilirubin AST ALT Alkaline Phosphatase Total Protein Albumin Urine Color Urine Appearance Urine pH Ur Specific [place] Urine Protein Urine Glucose (UA) Urine Ketones Urine Blood Urine Nitrite Urine Bilirubin Urine Urobilinogen Ur Leukocyte Esterase RPR Titer Hepatitis C Antibody pt aox3 + vomiting Assessment: 10/22/16 11:34 withdrawal sx; Plan: cont. detox increase fluds tigan 200mg im
[2016-10-22] MEDS ORDERED: POTASSIUM CHLORIDE TABS 20 MEQ TABLET.ER (FP) PO ONE ×2 (13:46→16:00)
[2016-10-22] MEDS ORDERED: ONDANSETRON *ODT* 4 MG TABLET SL PRN (16:31)
[2016-10-22] MEDS ORDERED: ONDANSETRON *ODT* 4 MG TABLET SL ONE (17:15)
[2016-10-22] MEDS: chlordiazePOXIDE 5 MG CAPSULE PO SCH ×2 (17:37→22:58)
[2016-10-22] MEDS: THIAMINE HCL 100 MG TABLET (FP) PO SCH (21:42)
[2016-10-22] MEDS: INSULIN DETEMIR 100 UNITS/ML MDV SQ SCH ×2 (21:42→23:09)
[2016-10-22] MEDS: TRIMETHOBENZAMIDE HCL 200MG/2ML INJ IM PRN (21:46)
[2016-10-23] MEDS ORDERED: INSULIN (NOVOLOG) ASPART 100 UNITS/ML 10ML VIAL ONE ×4 (06:35→21:20)
[2016-10-23] MEDS: INSULIN SLIDING SCALE (NOVOLOG) 1 VIAL SQ SCH ×4 (06:38→22:33)
[2016-10-23] MEDS: chlordiazePOXIDE 5 MG CAPSULE PO SCH ×2 (07:46→11:16)
--- NOTE | 2016-10-23 10:38 | PN ---
[facility] Progress Note (SOAP) Subjective: feeling weak sweats body aches irritable Objective: 10/23/16 10:34 Vital Signs Temperature 99.5 F 10/23/16 09:51 Pulse Rate 90 10/23/16 09:51 Respiratory Rate 16 10/23/16 09:51 Blood Pressure 185/94 10/23/16 09:51 O2 Sat by Pulse Oximetry (%) Laboratory Tests 10/20/16 10/20/16 10/21/16 06:00 22:50 06:00 WBC 5.6 RBC 4.95 Hgb 13.4 Hct 41.4 MCV 83.7 MCHC 32.5 RDW 14.4 Plt Count 205 MPV 9.9 Sodium Potassium Chloride Carbon Dioxide Anion Gap BUN Creatinine Creat Clearance w eGFR POC Glucometer Random Glucose Calcium Total Bilirubin AST ALT Alkaline Phosphatase Total Protein Albumin Urine Color Yellow Urine Appearance Clear Urine pH 6.0 Ur Specific [place] 1.021 Urine Protein Negative Urine Glucose (UA) 1+ H Urine Ketones Negative Urine Blood Negative Urine Nitrite Negative Urine Bilirubin Negative Urine Urobilinogen Negative Ur Leukocyte Esterase Negative RPR Titer Hepatitis C Antibody 0.3 10/21/16 10/21/16 10/21/16 06:00 06:00 06:25 WBC RBC Hgb Hct MCV MCHC RDW Plt Count MPV Sodium 136 Potassium 3.4 L Chloride 95 L Carbon Dioxide 32 Anion Gap 9 BUN 9 D Creatinine 0.9 Creat Clearance w eGFR > 60 POC Glucometer 249 Random Glucose 283 H Calcium 10.0 Total Bilirubin 0.3 D AST 14 L ALT 16 Alkaline Phosphatase 122 H Total Protein 8.0 Albumin 3.9 Urine Color Urine Appearance Urine pH Ur Specific [place] Urine Protein Urine Glucose (UA) Urine Ketones Urine Blood Urine Nitrite Urine Bilirubin Urine Urobilinogen Ur Leukocyte Esterase RPR Titer Nonreactive Hepatitis C Antibody 10/21/16 10/21/16 10/21/16 11:22 16:38 21:18 WBC RBC Hgb Hct MCV MCHC RDW Plt Count MPV Sodium Potassium Chloride Carbon Dioxide Anion Gap BUN Creatinine Creat Clearance w eGFR POC Glucometer 305 298 270 Random Glucose Calcium Total Bilirubin AST ALT Alkaline Phosphatase Total Protein Albumin Urine Color Urine Appearance Urine pH Ur Specific [place] Urine Protein Urine Glucose (UA) Urine Ketones Urine Blood Urine Nitrite Urine Bilirubin Urine Urobilinogen Ur Leukocyte Esterase RPR Titer Hepatitis C Antibody 10/22/16 10/22/1617 10:48 16:21 21:25 WBC RBC Hgb Hct MCV MCHC RDW Plt Count MPV Sodium Potassium Chloride Carbon Dioxide Anion Gap BUN Creatinine Creat Clearance w eGFR POC Glucometer 288 278 336 Random Glucose Calcium Total Bilirubin AST ALT Alkaline Phosphatase Total Protein Albumin Urine Color Urine Appearance Urine pH Ur Specific [place] Urine Protein Urine Glucose (UA) Urine Ketones Urine Blood Urine Nitrite Urine Bilirubin Urine Urobilinogen Ur Leukocyte Esterase RPR Titer Hepatitis C Antibody 10/23/16 06:31 WBC RBC Hgb Hct MCV MCHC RDW Plt Count MPV Sodium Potassium Chloride Carbon Dioxide Anion Gap BUN Creatinine Creat Clearance w eGFR POC Glucometer 353 Random Glucose Calcium Total Bilirubin AST ALT Alkaline Phosphatase Total Protein Albumin Urine Color Urine Appearance Urine pH Ur Specific [place] Urine Protein Urine Glucose (UA) Urine Ketones Urine Blood Urine Nitrite Urine Bilirubin Urine Urobilinogen Ur Leukocyte Esterase RPR Titer Hepatitis C Antibody increased BP low grade temp repeat CBC/CMP reglan 10mg po before meals clonidine 0.1 mg bid Assessment: 10/23/16 10:37 withdrawal sx Plan: continue detox increase fluids f/u repeated labs
[2016-10-23] MEDS: TRIMETHOBENZAMIDE HCL 200MG/2ML INJ IM PRN (11:13)
[2016-10-23] MEDS: PRENATAL VITAMINS W/ FOLIC ACID TABLET (FP) PO SCH (11:16)
[2016-10-23] MEDS: POTASSIUM CHLORIDE TABS 20 MEQ TABLET.ER (FP) PO SCH (11:16)
[2016-10-23] MEDS: METOCLOPRAMIDE HCL 10 MG TABLET (FP) PO SCH ×3 (11:16→22:32)
[2016-10-23] MEDS: cloNIDine HCL 0.1 MG TABLET PO SCH ×2 (11:17→22:33)
[2016-10-23] MEDS: NICOTINE 14 MG/24 HOURS TOPICAL PATCH TD SCH (12:01)
[2016-10-23] MEDS: METHADONE HCL 5 MG TABLET (FOR DETOX USE ONLY) PO SCH (12:01)
[2016-10-23 13:18] LABS: BASOPHIL 0.2 % (0-2.0); MCH 26.6 pg (25.7-33.7); MCHC 32.5 g/dl (32.0-36.0); MEAN CELL VOLUME 81.9 fl (80-96); MEAN PLT VOLUME 9.4 fl (7.5-11.1); NEUTROPHILS 85.2 % (42.8-82.8); PLATELET COUNT 261 K/MM3 (134-434); RDW 14.3 % (11.6-15.6); WHITE BLOOD COUNT 11.4 K/mm3 (4.0-10.0)
[2016-10-23 13:21] LABS: CALCIUM 10.2 mg/dL (8.5-10.1)
[2016-10-23 13:29] LABS: BILIRUBIN,TOTAL 0.4 mg/dL (0.2-1.0); TOT PROT 8.4 g/dl (6.4-8.2)
[2016-10-23] MEDS: LISINOPRIL 5 MG TABLET (FP) PO SCH (15:58)
[2016-10-23] MEDS: chlordiazePOXIDE HCL 10 MG CAPSULE PO SCH ×2 (17:39→22:34)
[2016-10-23] MEDS: THIAMINE HCL 100 MG TABLET (FP) PO SCH (22:32)
[2016-10-23] MEDS: INSULIN DETEMIR 100 UNITS/ML MDV SQ SCH (22:33)
[2016-10-24] MEDS: chlordiazePOXIDE HCL 10 MG CAPSULE PO SCH ×2 (07:32→11:01)
[2016-10-24] MEDS: INSULIN SLIDING SCALE (NOVOLOG) 1 VIAL SQ SCH ×4 (08:00→22:49)
[2016-10-24] MEDS: METOCLOPRAMIDE HCL 10 MG TABLET (FP) PO SCH ×4 (08:00→22:49)
[2016-10-24] MEDS ORDERED: INSULIN (NOVOLOG) ASPART 100 UNITS/ML 10ML VIAL ONE ×2 (08:06→11:37)
[2016-10-24] MEDS ORDERED: METHADONE HCL 10 MG TABLET (FOR DETOX USE ONLY) PO SCH (10:00)
[2016-10-24 10:05] LABS: BASOPHIL 0.3 % (0-2.0); EOSINOPHIL 0.1 % (0-4.5); MCH 26.9 pg (25.7-33.7); MCHC 32.5 g/dl (32.0-36.0); MEAN CELL VOLUME 82.9 fl (80-96); MEAN PLT VOLUME 9.2 fl (7.5-11.1); NEUTROPHILS 60.1 % (42.8-82.8); PLATELET COUNT 240 K/MM3 (134-434); RDW 14.5 % (11.6-15.6); WHITE BLOOD COUNT 10.3 K/mm3 (4.0-10.0)
[2016-10-24] MEDS: PRENATAL VITAMINS W/ FOLIC ACID TABLET (FP) PO SCH (10:44)
[2016-10-24] MEDS: cloNIDine HCL 0.1 MG TABLET PO SCH (10:44)
[2016-10-24] MEDS: LISINOPRIL 5 MG TABLET (FP) PO SCH (10:44)
[2016-10-24] MEDS: POTASSIUM CHLORIDE TABS 20 MEQ TABLET.ER (FP) PO SCH (10:44)
[2016-10-24] MEDS: NICOTINE 14 MG/24 HOURS TOPICAL PATCH TD SCH (10:47)
--- NOTE | 2016-10-24 11:30 | PN ---
[facility] Progress Note (SOAP) Subjective: tired no nausea no vomiting sweats Objective: 10/24/16 11:28 Vital Signs Temperature 98.6 F 10/24/16 06:54 Pulse Rate 87 10/24/16 10:00 Respiratory Rate 18 10/24/16 10:00 Blood Pressure 122/77 10/24/16 10:00 O2 Sat by Pulse Oximetry (%) Laboratory Tests 10/20/16 10/20/16 10/20/16 06:00 12:48 17:50 WBC RBC Hgb Hct MCV MCHC RDW Plt Count MPV Neutrophils % Lymphocytes % Monocytes % Eosinophils % Basophils % Sodium Potassium Chloride Carbon Dioxide Anion Gap BUN Creatinine Creat Clearance w eGFR POC Glucometer 326 312 Random Glucose Calcium Total Bilirubin AST ALT Alkaline Phosphatase Total Protein Albumin Urine Color Urine Appearance Urine pH Ur Specific [place] Urine Protein Urine Glucose (UA) Urine Ketones Urine Blood Urine Nitrite Urine Bilirubin Urine Urobilinogen Ur Leukocyte Esterase RPR Titer Hepatitis C Antibody 0.3 10/20/16 10/20/16 10/21/16 21:44 22:50 06:00 WBC 5.6 RBC 4.95 Hgb 13.4 Hct 41.4 MCV 83.7 MCHC 32.5 RDW 14.4 Plt Count 205 MPV 9.9 Neutrophils % Lymphocytes % Monocytes % Eosinophils % Basophils % Sodium Potassium Chloride Carbon Dioxide Anion Gap BUN Creatinine Creat Clearance w eGFR POC Glucometer 232 Random Glucose Calcium Total Bilirubin AST ALT Alkaline Phosphatase Total Protein Albumin Urine Color Yellow Urine Appearance Clear Urine pH 6.0 Ur Specific [place] 1.021 Urine Protein Negative Urine Glucose (UA) 1+ H Urine Ketones Negative Urine Blood Negative Urine Nitrite Negative Urine Bilirubin Negative Urine Urobilinogen Negative Ur Leukocyte Esterase Negative RPR Titer Hepatitis C Antibody 10/21/16 10/21/16 10/21/16 06:00 06:00 06:25 WBC RBC Hgb Hct MCV MCHC RDW Plt Count MPV Neutrophils % Lymphocytes % Monocytes % Eosinophils % Basophils % Sodium 136 Potassium 3.4 L Chloride 95 L Carbon Dioxide 32 Anion Gap 9 BUN 9 D Creatinine 0.9 Creat Clearance w eGFR > 60 POC Glucometer 249 Random Glucose 283 H Calcium 10.0 Total Bilirubin 0.3 D AST 14 L ALT 16 Alkaline Phosphatase 122 H Total Protein 8.0 Albumin 3.9 Urine Color Urine Appearance Urine pH Ur Specific [place] Urine Protein Urine Glucose (UA) Urine Ketones Urine Blood Urine Nitrite Urine Bilirubin Urine Urobilinogen Ur Leukocyte Esterase RPR Titer Nonreactive Hepatitis C Antibody 10/21/16 10/21/16 10/21/16 11:22 16:38 21:18 WBC RBC Hgb Hct MCV MCHC RDW Plt Count MPV Neutrophils % Lymphocytes % Monocytes % Eosinophils % Basophils % Sodium Potassium Chloride Carbon Dioxide Anion Gap BUN Creatinine Creat Clearance w eGFR POC Glucometer 305 298 270 Random Glucose Calcium Total Bilirubin AST ALT Alkaline Phosphatase Total Protein Albumin Urine Color Urine Appearance Urine pH Ur Specific [place] Urine Protein Urine Glucose (UA) Urine Ketones Urine Blood Urine Nitrite Urine Bilirubin Urine Urobilinogen Ur Leukocyte Esterase RPR Titer Hepatitis C Antibody 10/22/16 10/22/16 10/22/16 10:48 16:21 21:25 WBC RBC Hgb Hct MCV MCHC RDW Plt Count MPV Neutrophils % Lymphocytes % Monocytes % Eosinophils % Basophils % Sodium Potassium Chloride Carbon Dioxide Anion Gap BUN Creatinine Creat Clearance w eGFR POC Glucometer 288 278 336 Random Glucose Calcium Total Bilirubin AST ALT Alkaline Phosphatase Total Protein Albumin Urine Color Urine Appearance Urine pH Ur Specific [place] Urine Protein Urine Glucose (UA) Urine Ketones Urine Blood Urine Nitrite Urine Bilirubin Urine Urobilinogen Ur Leukocyte Esterase RPR Titer Hepatitis C Antibody 10/23/16 10/23/16 10/23/16 06:31 10:55 10:55 WBC 11.4 H D RBC 5.58 H Hgb 14.9 D Hct 45.7 H MCV 81.9 MCHC 32.5 RDW 14.3 Plt Count 261 D MPV 9.4 Neutrophils % 85.2 H Lymphocytes % 8.0 Monocytes % 6.6 Eosinophils % 0.0 Basophils % 0.2 Sodium 136 Potassium 4.0 Chloride 95 L Carbon Dioxide 26 Anion Gap 15 BUN 20 H D Creatinine 1.0 Creat Clearance w eGFR 57.15 POC Glucometer 353 Random Glucose 318 H* Calcium 10.2 H Total Bilirubin 0.4 D AST 19 D ALT 16 Alkaline Phosphatase 114 Total Protein 8.4 H Albumin 4.0 Urine Color Urine Appearance Urine pH Ur Specific [place] Urine Protein Urine Glucose (UA) Urine Ketones Urine Blood Urine Nitrite Urine Bilirubin Urine Urobilinogen Ur Leukocyte Esterase RPR Titer Hepatitis C Antibody 10/23/16 10/23/16 10/23/16 11:24 16:45 20:49 WBC RBC Hgb Hct MCV MCHC RDW Plt Count MPV Neutrophils % Lymphocytes % Monocytes % Eosinophils % Basophils % Sodium Potassium Chloride Carbon Dioxide Anion Gap BUN Creatinine Creat Clearance w eGFR POC Glucometer 316 325 300 Random Glucose Calcium Total Bilirubin AST ALT Alkaline Phosphatase Total Protein Albumin Urine Color Urine Appearance Urine pH Ur Specific [place] Urine Protein Urine Glucose (UA) Urine Ketones Urine Blood Urine Nitrite Urine Bilirubin Urine Urobilinogen Ur Leukocyte Esterase RPR Titer Hepatitis C Antibody 10/24/16 10/24/16 06:21 07:00 WBC 10.3 H RBC 5.37 H Hgb 14.4 Hct 44.5 MCV 82.9 MCHC 32.5 RDW 14.5 Plt Count 240 MPV 9.2 Neutrophils % 60.1 D Lymphocytes % 32.0 D Monocytes % 7.5 Eosinophils % 0.1 D Basophils % 0.3 Sodium Potassium Chloride Carbon Dioxide Anion Gap BUN Creatinine Creat Clearance w eGFR POC Glucometer 235 Random Glucose Calcium Total Bilirubin AST ALT Alkaline Phosphatase Total Protein Albumin Urine Color Urine Appearance Urine pH Ur Specific [place] Urine Protein Urine Glucose (UA) Urine Ketones Urine Blood Urine Nitrite Urine Bilirubin Urine Urobilinogen Ur Leukocyte Esterase RPR Titer Hepatitis C Antibody pt improving awake/alert ambulating no acute distress Assessment: 10/24/16 11:29 withdrawal sx Plan: continue detox increase fluids d/c in am
[2016-10-24 14:59] VITALS: BP 142/74; PULSE 88; TEMP 99.3
--- NOTE | 2016-10-24 17:15 | PN ---
[facility] Progress Note Note: pt last BP 60/30 all sedating medication d/c; visitil, benadryl lisinopril also d/c encouraged hydration.
--- NOTE | 2016-10-24 17:28 | PN ---
S Progress Note Note: spoke with PADMA Greenwood for pt evaluation regarding pt low BP 60/30. pt responsive but very lethargic,tired, weak. pt will be sent to ED.
--- NOTE | 2016-10-24 18:53 | DS ---
[facility] Detox Discharge Summary Admission Date: 10/20/16 Discharge Date: 10/24/16 - History Present History: Alcohol Dependence, Opioid Dependence Pertinent Past History: asthma diabetes ii - Physical Exam Results Vital Signs: Vital Signs Temperature 99.3 F 10/24/16 14:57 Pulse Rate 88 10/24/16 14:57 Respiratory Rate 16 10/24/16 14:57 Blood Pressure 142/74 10/24/16 14:57 O2 Sat by Pulse Oximetry (%) Pertinent Admission Physical Exam Findings: withdrawal sx Laboratory Last Values WBC 10.3 K/mm3 (4.0-10.0) H 10/24/16 07:00 RBC 5.37 M/mm3 (3.60-5.2) H 10/24/16 07:00 Hgb 14.4 GM/dL (10.7-15.3) 10/24/16 07:00 Hct 44.5 % (32.4-45.2) 10/24/16 07:00 MCV 82.9 fl (80-96) 10/24/16 07:00 MCHC 32.5 g/dl (32.0-36.0) 10/24/16 07:00 RDW 14.5 % (11.6-15.6) 10/24/16 07:00 Plt Count 240 K/MM3 (134-434) 10/24/16 07:00 MPV 9.2 fl (7.5-11.1) 10/24/16 07:00 Neutrophils % 60.1 % (42.8-82.8) D 10/24/16 07:00 Lymphocytes % 32.0 % (8-40) D 10/24/16 07:00 Monocytes % 7.5 % (3.8-10.2) 10/24/16 07:00 Eosinophils % 0.1 % (0-4.5) D 10/24/16 07:00 Basophils % 0.3 % (0-2.0) 10/24/16 07:00 Sodium 136 mmol/L (136-145) 10/23/16 10:55 Potassium 4.0 mmol/L (3.5-5.1) 10/23/16 10:55 Chloride 95 mmol/L (98-107) L 10/23/16 10:55 Carbon Dioxide 26 mmol/L (21-32) 10/23/16 10:55 Anion Gap 15 (8-16) 10/23/16 10:55 BUN 20 mg/dL (7-18) H D 10/23/16 10:55 Creatinine 1.0 mg/dL (0.55-1.02) 10/23/16 10:55 Creat Clearance w eGFR 57.15 (>60) 10/23/16 10:55 POC Glucometer 301 UNITS (()) 10/24/16 16:49 Random Glucose 318 mg/dL (74-106) H* 10/23/16 10:55 Calcium 10.2 mg/dL (8.5-10.1) H 10/23/16 10:55 Total Bilirubin 0.4 mg/dL (0.2-1.0) D 10/23/16 10:55 AST 19 U/L (15-37) D 10/23/16 10:55 ALT 16 U/L (12-78) 10/23/16 10:55 Alkaline Phosphatase 114 U/L (45-117) 10/23/16 10:55 Total Protein 8.4 g/dl (6.4-8.2) H 10/23/16 10:55 Albumin 4.0 g/dl (3.4-5.0) 10/23/16 10:55 Urine Color Yellow 10/20/16 22:50 Urine Appearance Clear 10/20/16 22:50 Urine pH 6.0 (5.0-8.0) 10/20/16 22:50 Ur Specific [place] 1.021 (1.001-1.035) 10/20/16 22:50 Urine Protein Negative (NEGATIVE) 10/20/16 22:50 Urine Glucose (UA) 1+ (NEGATIVE) H 10/20/16 22:50 Urine Ketones Negative (NEGATIVE) 10/20/16 22:50 Urine Blood Negative (NEGATIVE) 10/20/16 22:50 Urine Nitrite Negative (NEGATIVE) 10/20/16 22:50 Urine Bilirubin Negative (NEGATIVE) 10/20/16 22:50 Urine Urobilinogen Negative E.U./dl (0.2-1.0) 10/20/16 22:50 Ur Leukocyte Esterase Negative (NEGATIVE) 10/20/16 22:50 RPR Titer Nonreactive (NONREACTIVE) 10/21/16 06:00 Hepatitis C Antibody 0.3 s/co ratio (0.0-0.9) 10/20/16 06:00 lab noted - Treatment Hospital Course: Detox Protocol Followed, Responded well - Medication Discharge Medications: Ambulatory Orders Insulin Aspart [Novolog Flexpen] 0 unit SQ TIDCM 06/27/16 Insulin Glargine,Hum.rec.anlog [Lantus Solostar PEN -] 16 units SQ HS 06/27/16 - Diagnosis (1) Alcohol dependence with uncomplicated withdrawal Current Visit: Yes Status: Acute (2) Nicotine dependence Current Visit: Yes Status: Acute Qualifiers: Nicotine product type: cigarettes Substance use status: in withdrawal Qualified Code(s): F17.213 - Nicotine dependence, cigarettes, with withdrawal (3) Opioid dependence with withdrawal Current Visit: Yes Status: Acute (4) Type 2 diabetes mellitus Current Visit: Yes Status: Acute Qualifiers: Diabetes mellitus complication status: without complication Diabetes mellitus residential insulin use: with residential use Qualified Code(s): E11.9 - Type 2 diabetes mellitus without complications; 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
[2016-10-24] MEDS: INSULIN DETEMIR 100 UNITS/ML MDV SQ SCH (22:49)
[2016-10-24] MEDS: THIAMINE HCL 100 MG TABLET (FP) PO SCH (22:50)
[2016-10-25] MEDS ORDERED: METHADONE HCL 5 MG TABLET (FOR DETOX USE ONLY) PO SCH (06:00)
== END 2016-10-24 23:55 | disposition short-term general hospital (02) | DRG 773 ==
LOC: YASAS 11:48 → Y6N 13:31
PROVIDERS: ADMIT Internal Medicine Addiction Medicine; ATTEND Internal Medicine Addiction Medicine
PROC: HZ2ZZZZ Detoxification Services for Substance Abuse Treatment (ICD-10-PCS; principal; 2016-10-24)
DX: F11.23 Opioid dependence with withdrawal (principal); F10.230 Alcohol dependence with withdrawal, uncomplicated; F17.213 Nicotine dependence, cigarettes, with withdrawal; E11.9 Type 2 diabetes mellitus without complications; Z79.4 Long term (current) use of insulin; J45.909 Unspecified asthma, uncomplicated; J44.9 Chronic obstructive pulmonary disease, unspecified; I95.9 Hypotension, unspecified
CPT/HCPCS: 36415; 80053; 81003; 85025; 85027; 86593; 93005; 93010

== ENCOUNTER 2016-10-24 18:56 | Inpatient (IN) | payer OTHER ==
[2016-10-24] MEDS ORDERED: AZTREONAM 2 GM in DEXTROSE 5%-WATER - 50 ML IVPB ONE (19:10)
[2016-10-24] MEDS ORDERED: SODIUM CHLORIDE 1,000 ML IV STA ×3 (19:10→20:53)
[2016-10-24] MEDS ORDERED: VANCOMYCIN 1,000 MG in DEXTROSE 5%-WATER - 250 ML IVPB ONE (19:10)
[2016-10-24] MEDS ORDERED: methylPREDNISolone NA SUCC 125 MG/2 ML VIAL IVPB ONE (19:10)
[2016-10-24] MEDS ORDERED: VANCOMYCIN 1 GRAM (PRE-DOCKED) 250 ML IVPB ONE (19:24)
[2016-10-24] MEDS ORDERED: methylPREDNISolone NA SUCC 125 MG/2 ML VIAL ONE (19:25)
[2016-10-24 20:13] LABS: VENOUS PH 7.28 (7.32-7.42)
[2016-10-24 20:20] LABS: VENOUS BLOOD GAS HCO3 25.3 meq/L (19-25)
[2016-10-24 20:24] LABS: BASOPHIL 0.3 % (0-2.0); EOSINOPHIL 0.2 % (0-4.5); MCH 27.3 pg (25.7-33.7); MCHC 32.6 g/dl (32.0-36.0); MEAN CELL VOLUME 83.9 fl (80-96); MEAN PLT VOLUME 9.1 fl (7.5-11.1); NEUTROPHILS 58.1 % (42.8-82.8); PLATELET COUNT 158 K/MM3 (134-434); RDW 14.4 % (11.6-15.6); WHITE BLOOD COUNT 8.9 K/mm3 (4.0-10.0)
[2016-10-24 20:36] LABS: INR 1.16 (0.82-1.09); PROTHROMBIN TIME (PATIENT) 12.8 SEC (9.98-11.88)
[2016-10-24 20:39] LABS: ACTIVATED PTT 25.5 SECONDS (26.9-34.4)
[2016-10-24 20:43] LABS: URINE APPEARANCE CLEAR; URINE BILIRUBIN NEGATIVE (NEGATIVE); URINE BLOOD NEGATIVE (NEGATIVE); URINE COLOR LTYELLOW; URINE GLUCOSE (UA) 3+ (NEGATIVE); URINE KETONE NEGATIVE (NEGATIVE); URINE LEUK ESTERASE NEGATIVE (NEGATIVE); URINE NITRITE NEGATIVE (NEGATIVE); URINE UROBILINOGEN NEGATIVE E.U./dl (0.2-1.0)
[2016-10-24 20:47] LABS: ALBUMIN 2.5 g/dl (3.4-5.0); ANION GAP 10 (8-16); BILIRUBIN,TOTAL 0.3 mg/dL (0.2-1.0); CO2 24 mmol/L (21-32); CREATININE 1.5 mg/dL (0.55-1.02); GLUCOSE,RANDOM 245 mg/dL (74-106); SGOT/AST 16 U/L (15-37); SGPT/ALT 15 U/L (12-78); TOT PROT 5.2 g/dl (6.4-8.2)
[2016-10-24 20:50] LABS: ALK PHOS 73 U/L (45-117); TROPONIN I < 0.02 ng/ml (0.00-0.05)
[2016-10-24] MEDS ORDERED: METOCLOPRAMIDE HCL INJECTION 10 MG/2 ML VIAL IVPB ONE (20:57)
--- NOTE | 2016-10-24 21:02 | PDOC ---
History of Present Illness - General History Source: Patient Exam Limitations: No Limitations <Demarcus Belcher - Last Filed: 10/24/16 21:37> - General History Source: Patient, EMS, Other ([facility] records) Exam Limitations: No Limitations - History of Present Illness Initial Comments: 10/24/16 21:09 The patient is a 55 year old female, with a significant past medical history of asthma, diabetes, lupus (noncompliant with steroids), COPD and polysubstance abuse (alcohol/opiates/cocaine), who presents to the emergency department via EMS from [facility] with nausea, vomiting, diarrhea and generalized weakness for the past 3 days. The patient has been at [facility] in detox since . This evening, staff at [facility] noted that the patient was hypotensive (BP: 60/30) and sent the patient to the ED for evaluation secondary. The patient states that her last drug use was 10/20/2016. Since being at detox, the patient has been on 10 mg of Methadone daily. The patient denies fevers or chills. Allergies: Cefuroxime Axetil, Cephalexin Monohydrate, Moxifloxacin HCl. Past Surgical History: Left Foot Surgery s/p fracture (2008); Appendectomy (2009 ). Social History: Current everyday smoker. (Alcohol abuse (beer) - since age 16, 40 oz daily; cocaine abuse - since age 50, daily; heroin abuse - since age 53, daily). See HPI. <Gladys Almendarez - Last Filed: 10/24/16 22:36> - General Chief Complaint: Blood Pressure Problem Stated Complaint: BLOOD PRESSURE PROBLEM Time Seen by Provider: 10/24/16 19:10 Past History - Past Medical History Anemia: No Asthma: Yes (MDI) Cardiac Disorders: No CVA: No COPD: Yes Diabetes: Yes (IDDM) GI Disorders: No Disorders: No HTN: No Hypercholesterolemia: No Kidney Stones: No Liver Disease: No Suicide Attempt (Hx): No (DENIES) Seizures: No Thyroid Disease: No - Surgical History Abdominal Surgery: No Appendectomy: Yes (2009) Cardiac Surgery: No Cholecystectomy: No Lung Surgery: No Neurologic Surgery: No Orthopedic Surgery: Yes (LEFT FOOT SX DUE TO FX 2008) - Reproductive History PID: No - Psycho/Social/Smoking Cessation Hx Anxiety: No Suicidal Ideation: No Smoking History: Current every day smoker Have you smoked in the past 12 months: Yes Number of Cigarettes Smoked Daily: 3 Information on smoking cessation initiated: No 'Breaking Loose' booklet given: 10/20/16 Hx Alcohol Use: Yes Drug/Substance Use Hx: Yes Substance Use Type: Alcohol, Cocaine, Heroin Hx Substance Use Treatment: Yes ([facility]) <Demarcus Belcher - Last Filed: 10/24/16 21:37> <Gladys Amlendarez - Last Filed: 10/24/16 22:36> - Past Medical History Allergies/Adverse Reactions: Allergies Allergy/AdvReac Type Severity Reaction Status Date / Time cefuroxime axetil Allergy Severe fever Verified 10/24/16 19:02 [From Ceftin] cephalexin monohydrate Allergy Severe fever Verified 10/24/16 19:02 [From Keflex] moxifloxacin HCl Allergy Severe Rash Verified 10/24/16 19:02 [From Avelox] Home Medications: Ambulatory Orders Insulin Aspart [Novolog Flexpen] 0 unit SQ TIDCM 06/27/16 Insulin Glargine,Hum.rec.anlog [Lantus Solostar PEN -] 15 units SQ HS 06/27/16 Review of Systems - Review of Systems Able to Perform ROS?: Yes Comments:: 10/24/16 21:08 GENERAL/CONSTITUTIONAL: +Weakness. No fever or chills. HEAD, EYES, EARS, NOSE AND THROAT: No change in vision. No ear pain or discharge. No sore throat. CARDIOVASCULAR: No chest pain or shortness of breath. RESPIRATORY: No cough, wheezing, or hemoptysis. GASTROINTESTINAL: +Nausea, vomiting, diarrhea. No constipation. GENITOURINARY: No dysuria, frequency, or change in urination. MUSCULOSKELETAL: No joint or muscle swelling or pain. No neck or back pain. SKIN: No rash. NEUROLOGIC: No headache, vertigo, loss of consciousness, or change in strength/ sensation. ENDOCRINE: No increased thirst. No abnormal weight change. HEMATOLOGIC/LYMPHATIC: No anemia, easy bleeding, or history of blood clots. ALLERGIC/IMMUNOLOGIC: No hives or skin allergy. <Gladys Almendarez - Last Filed: 10/24/16 22:36> *Physical Exam - Vital Signs Last Vital Signs Temp Pulse Resp BP Pulse Ox 65 20 65/51 100 10/24/16 19:02 10/24/16 19:02 10/24/16 19:02 10/24/16 20:46 <Demarcus Belcher - Last Filed: 10/24/16 21:37> - Vital Signs Last Vital Signs Temp Pulse Resp BP Pulse Ox 65 20 65/51 100 10/24/16 19:02 10/24/16 19:02 10/24/16 19:02 10/24/16 20:46 - Physical Exam Comments: 10/24/16 21:13 GENERAL: Lethargic appearing but awake, alert and fully oriented. HEAD: No signs of trauma. EYES: PERRLA, EOMI, sclera anicteric, conjunctiva clear. ENT: Dry mucosa. Auricles normal inspection, hearing grossly normal, nares patent, oropharynx clear without exudates. NECK: Normal ROM, supple, no lymphadenopathy, JVD, or masses. LUNGS: Breath sounds equal, clear to auscultation bilaterally. No wheezes, and no crackles. HEART: Regular rate and rhythm, normal S1 and S2, no murmurs, rubs or gallops. ABDOMEN: Soft, nontender, normoactive bowel sounds. No guarding, no rebound. No masses. EXTREMITIES: Normal range of motion, no edema. No clubbing or cyanosis. No cords , erythema, or tenderness. NEUROLOGICAL: Cranial nerves II through XII intact. Normal speech, gait deferred. SKIN: Warm, dry, normal turgor, no rashes or lesions noted. <Gladys Almendarez - Last Filed: 10/24/16 22:36> Heart Score/ECG Review #1 10/24/16 21:37 ECG 59, no std/sharri, normal axis, normal interlva,s QTC 483 msec <Demarcus Belcher - Last Filed: 10/24/16 21:37> ED Treatment Course - LABORATORY CBC & Chemistry Diagram: 10/24/16 20:00 10/24/16 20:00 - ADDITIONAL ORDERS Additional order review: Laboratory Results 10/24/16 10/24/16 20:05 20:00 INR 1.16 H PTT (Actin FS) 25.5 L VBG pH 7.28 L POC VBG pCO2 56.2 H POC VBG pO2 23.4 L Mixed VBG HCO3 25.3 H 10/24/16 20:00 RBC 3.88 D MCV 83.9 MCHC 32.6 RDW 14.4 MPV 9.1 Neutrophils % 58.1 Lymphocytes % 31.5 Monocytes % 9.9 Eosinophils % 0.2 D Basophils % 0.3 - RADIOLOGY Radiology Studies Ordered: Category Date Time Status CHEST X-RAY PORTABLE* [RAD] Stat Radiology 10/24/16 19:10 Completed - Medications Given in the ED: ED Medications Discontinued Medications Generic Name Dose Route Start Last Admin Trade Name Freq PRN Reason Stop Dose Admin Aztreonam 2 gm/ Dextrose 50 mls @ 100 mls/hr 10/24/16 19:10 10/24/16 20:00 IVPB 10/24/16 19:39 100 mls/hr ONCE ONE Administration Protocol Sodium Chloride 1,000 mls @ 1,000 mls/hr 10/24/16 19:10 10/24/16 20:00 Normal Saline - IV 10/24/16 20:09 1,000 mls/hr ASDIR STA Administration Vancomycin HCl 1,000 mg/ 250 mls @ 250 mls/hr 10/24/16 19:10 10/24/16 20:00 Dextrose IVPB 10/24/16 20:09 250 mls/hr ONCE ONE Administration Protocol Methylprednisolone Sodium Succinate 125 mg 10/24/16 19:10 10/24/16 20:00 Solu-Medrol - IVPB 10/24/16 19:11 125 mg ONCE ONE Administration <Demarcus Belcher - Last Filed: 10/24/16 21:37> - LABORATORY CBC & Chemistry Diagram: 10/24/16 20:00 10/24/16 20:00 - ADDITIONAL ORDERS Additional order review: Laboratory Results 10/24/16 10/24/16 10/24/16 20:05 20:00 20:00 INR PTT (Actin FS) VBG pH 7.28 L POC VBG pCO2 56.2 H POC VBG pO2 23.4 L Mixed VBG HCO3 25.3 H Sodium 137 Potassium 3.7 Chloride 103 Carbon Dioxide 24 Anion Gap 10 BUN 24 H Creatinine 1.5 H D Creat Clearance w eGFR 35.79 Random Glucose 245 H D Lactic Acid 1.838 Calcium 7.0 L D Total Bilirubin 0.3 D AST 16 ALT 15 Alkaline Phosphatase 73 D Creatine Kinase 426 H Troponin I < 0.02 Total Protein 5.2 L D Albumin 2.5 L D 10/24/16 20:00 INR 1.16 H PTT (Actin FS) 25.5 L VBG pH POC VBG pCO2 POC VBG pO2 Mixed VBG HCO3 Sodium Potassium Chloride Carbon Dioxide Anion Gap BUN Creatinine Creat Clearance w eGFR Random Glucose Lactic Acid Calcium Total Bilirubin AST ALT Alkaline Phosphatase Creatine Kinase Troponin I Total Protein Albumin 10/24/16 20:00 RBC 3.88 D MCV 83.9 MCHC 32.6 RDW 14.4 MPV 9.1 Neutrophils % 58.1 Lymphocytes % 31.5 Monocytes % 9.9 Eosinophils % 0.2 D Basophils % 0.3 - Medications Given in the ED: ED Medications Discontinued Medications Generic Name Dose Route Start Last Admin Trade Name Freq PRN Reason Stop Dose Admin Aztreonam 2 gm/ Dextrose 50 mls @ 100 mls/hr 10/24/16 19:10 10/24/16 20:00 IVPB 10/24/16 19:39 100 mls/hr ONCE ONE Administration Protocol Sodium Chloride 1,000 mls @ 1,000 mls/hr 10/24/16 19:10 10/24/16 20:00 Normal Saline - IV 10/24/16 20:09 1,000 mls/hr ASDIR STA Administration Vancomycin HCl 1,000 mg/ 250 mls @ 250 mls/hr 10/24/16 19:10 10/24/16 20:00 Dextrose IVPB 10/24/16 20:09 250 mls/hr ONCE ONE Administration Protocol Methylprednisolone Sodium Succinate 125 mg 10/24/16 19:10 10/24/16 20:00 Solu-Medrol - IVPB 10/24/16 19:11 125 mg ONCE ONE Administration <Gladys Almendarez - Last Filed: 10/24/16 22:36> Medical Decision Making - Medical Decision Making 10/24/16 20:57 A portion of this note was documented by scribe services under my direction. I have reviewed the details of the note, within reason, and agree with the documentation with the following case summary and management plan written by me. Patient treated in the ED. Nursing notes are reviewed and incorporated into the medical decision-making. Vital signs reviewed. Peripheral IV access obtained by the nurse, laboratory studies are drawn and sent, reviewed and interpreted by myself. 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 The patient actually denies any drug use and last several days. Last use of snorting heroin 5 days ago. She has been in detox taking 10 mgrams of methadone daily. She has had several days of nausea, vomiting, occasional loose stooling. Denies any pain or fevers. Patient was noted to have blood pressure 60/30 and was sent to the ER. Patient appears lethargic but mentating and speaking. Adult sepsis protocol was initiated and empiric vancomycin and Zosyn was ordered. Nausea, vomiting and loose stooling may potentially be from narcotic withdrawal but must presume infection given the setting of hypotension. Patient also has dry mucous membranes and likely hypovolemic. We'll give IV fluids and antibiotics. Given history of lupus, we' ll also give empiric steroids. Patient's blood pressures improved with IV fluids. Will ultimately admit the patient hospital for the patient. 10/24/16 21:29 Chest xray reviewed. No acute findings. CBC, BMP 10/24/16 20:00 10/24/16 20:00 CMP Sodium 137 mmol/L (136-145) 10/24/16 20:00 Potassium 3.7 mmol/L (3.5-5.1) 10/24/16 20:00 Chloride 103 mmol/L (98-107) 10/24/16 20:00 Carbon Dioxide 24 mmol/L (21-32) 10/24/16 20:00 Anion Gap 10 (8-16) 10/24/16 20:00 BUN 24 mg/dL (7-18) H 10/24/16 20:00 Creatinine 1.5 mg/dL (0.55-1.02) H D 10/24/16 20:00 Creat Clearance w eGFR 35.79 (>60) 10/24/16 20:00 Random Glucose 245 mg/dL (74-106) H D 10/24/16 20:00 Lactic Acid 1.838 mmol/L (0.4-2.0) 10/24/16 20:00 Calcium 7.0 mg/dL (8.5-10.1) L D 10/24/16 20:00 Total Bilirubin 0.3 mg/dL (0.2-1.0) D 10/24/16 20:00 AST 16 U/L (15-37) 10/24/16 20:00 ALT 15 U/L (12-78) 10/24/16 20:00 Alkaline Phosphatase 73 U/L (45-117) D 10/24/16 20:00 Creatine Kinase 426 IU/L (26-192) H 10/24/16 20:00 Troponin I < 0.02 ng/ml (0.00-0.05) 10/24/16 20:00 Total Protein 5.2 g/dl (6.4-8.2) L D 10/24/16 20:00 Albumin 2.5 g/dl (3.4-5.0) L D 10/24/16 20:00 Urine Test Results Urine Color Ltyellow 10/24/16 20:30 Urine Appearance Clear 10/24/16 20:30 Urine pH 6.0 (5.0-8.0) 10/24/16 20:30 Ur Specific [place] 1.012 (1.001-1.035) 10/24/16 20:30 Urine Protein 1+ (NEGATIVE) H 10/24/16 20:30 Urine Glucose (UA) 3+ (NEGATIVE) H D 10/24/16 20:30 Urine Ketones Negative (NEGATIVE) 10/24/16 20:30 Urine Blood Negative (NEGATIVE) 10/24/16 20:30 Urine Nitrite Negative (NEGATIVE) 10/24/16 20:30 Urine Bilirubin Negative (NEGATIVE) 10/24/16 20:30 Ur Leukocyte Esterase Negative (NEGATIVE) 10/24/16 20:30 Patient's creatinine is 1.5 which is elevated from previous. I suspect that this is acute renal sufficiency in the setting of hypovolemia. Patient has no white count, negative lactic acid, no anion gap. I suspect that the patient might be vomiting in the setting of narcotic withdrawal. After giving 3 L IV fluids, patient not urinating in the blood pressures improved to 90s over 60s. However, given the circumstance is, I discussed the case with nurse practitioner in the ICU Derek which accepts the patient to the ICU. Celeste hospitalist paged for admission. 10/24/16 21:36 Stool occult ordered for decrease in Hgb. Case discussed with Dr. Story. She accepts for ICU admission. Case discussed in detail with admitting physician including history, physical exam and ancillary studies. Admitting physician has assumed care for the patient, will follow all pending diagnostics and will complete the evaluation and treatment. <Demarcus Belcher - Last Filed: 10/24/16 21:37> - Critical Care Time Total Critical Care Time (minutes): 35 Critical Care Statement: The care of this patient involved high complexity decision making to prevent further life threatening deterioration of the patient 's condition and/or to evalute & treat vital organ system(s) failure or risk of failure. - Medical Decision Making 10/24/16 21:15 EXAM: RAD/CHEST X-RAY PORTABLE Reviewed By: Dr. Freddy Fischer IMPRESSION: No acute cardiopulmonary disease is present. <Gladys Almendarez - Last Filed: 10/24/16 22:36> *DC/Admit/Observation/Transfer - Discharge Dispostion Admit: Yes <Demarcus Belcher - Last Filed: 10/24/16 21:37> - Attestations Scribe Attestion: 10/24/16 21:03 Documentation prepared by Gladys Almendarez, acting as medical office asst for Demarcus Belcher MD. <Gladys Almendarez - Last Filed: 10/24/16 22:36> Diagnosis at time of Disposition: Acute kidney injury Hypotension Qualifiers: Hypotension type: unspecified hypotension type Qualified Code(s): I95.9 - Hypotension, unspecified
[2016-10-24 21:09] LABS: URINE PROTEIN 1+ (NEGATIVE)
[2016-10-24] MEDS ORDERED: METOCLOPRAMIDE HCL INJECTION 10 MG/2 ML VIAL ONE (21:23)
[2016-10-24 21:36] LABS: URINE BACTERIA RARE /hpf (NONE SEEN); URINE MUCUS RARE; URINE RBC 1 /hpf (0-3); URINE WBC 3 /hpf (3-5)
[2016-10-24] MEDS ORDERED: SODIUM CHLORIDE 500 ML IV STA (22:37)
[2016-10-24] MEDS ORDERED: SODIUM CHLORIDE 1,000 ML IV SCH (22:45)
--- NOTE | 2016-10-24 23:16 | PN ---
<Gifty Story - Last Filed: 10/24/16 23:15> Teaching Attending Note Name of Resident: Christine Cedeño <Jackelin Balderas - Last Filed: 10/25/16 04:07> Teaching Attending Note ATTENDING PHYSICIAN STATEMENT I saw and evaluated the patient. I reviewed the resident's note and discussed the case with the resident. I agree with the resident's findings and plan as documented. SUBJECTIVE: 55 year old female who presents via EMS from [facility] with complaint of low blood pressure. This evening, patient was found to be hypotensive by staff at [facility] with BP: 60/30. The patient has been at [facility] in detox since 10/20/2016. The patient states that her last heroin use was on 10/20/16. Patient is on 10 mg of Methadone daily at detox. Denies use of IV drugs. She denies fever, chills, hematochezia, melena, hematuria or vomiting. PMH: asthma, diabetes, Discoid lupus (noncompliant with medications), COPD and polysubstance abuse (alcohol/opiates/cocaine), [place] (2013), anxiety and depression PSH: Left Foot Surgery s/p fracture (2008); Appendectomy (2009). FMH: mother and father - both [place] after age of 58 SH: Current everyday smoker - 3 cigarettes a day. (Alcohol abuse (beer) - since age 16, 40 oz daily; crack cocaine abuse - since age 53, daily; heroin abuse - since age 53, daily). OBJECTIVE: Physical: VS: Last Vital Signs Temp Pulse Resp BP Pulse Ox 59 L 19 89/63 100 10/24/16 22:32 10/24/16 22:32 10/24/16 22:32 10/24/16 22:32 GENERAL: Awake, alert, and fully oriented, in no acute distress HEENT: Atraumatic. PERRLA, EOMI. Moist mucosa. No JVD LUNGS: No distress, speaks full sentences, clear to auscultation bilaterally HEART: Regular rate and rhythm, normal S1 and S2, no murmurs, rubs or gallops, peripheral pulses normal and equal bilaterally. ABDOMEN: Soft, nontender, normoactive bowel sounds. No guarding, no rebound. No masses EXTREMITIES: Normal inspection, Normal range of motion, no edema. No clubbing or cyanosis. NEUROLOGICAL: Cranial nerves II through XII grossly intact. Normal speech, normal gait, no focal sensorimotor deficits SKIN: Warm, Dry, normal turgor, no rashes or lesions noted. Labs: CBCD WBC 8.9 K/mm3 (4.0-10.0) 10/24/16 20:00 RBC 3.88 M/mm3 (3.60-5.2) D 10/24/16 20:00 Hgb 10.6 GM/dL (10.7-15.3) L D 10/24/16 20:00 Hct 32.5 % (32.4-45.2) D 10/24/16 20:00 MCV 83.9 fl (80-96) 10/24/16 20:00 MCHC 32.6 g/dl (32.0-36.0) 10/24/16 20:00 RDW 14.4 % (11.6-15.6) 10/24/16 20:00 Plt Count 158 K/MM3 (134-434) D 10/24/16 20:00 MPV 9.1 fl (7.5-11.1) 10/24/16 20:00 CMP Sodium 137 mmol/L (136-145) 10/24/16 20:00 Potassium 3.7 mmol/L (3.5-5.1) 10/24/16 20:00 Chloride 103 mmol/L (98-107) 10/24/16 20:00 Carbon Dioxide 24 mmol/L (21-32) 10/24/16 20:00 Anion Gap 10 (8-16) 10/24/16 20:00 BUN 24 mg/dL (7-18) H 10/24/16 20:00 Creatinine 1.5 mg/dL (0.55-1.02) H D 10/24/16 20:00 Creat Clearance w eGFR 35.79 (>60) 10/24/16 20:00 Calcium 7.0 mg/dL (8.5-10.1) L D 10/24/16 20:00 Total Bilirubin 0.3 mg/dL (0.2-1.0) D 10/24/16 20:00 AST 16 U/L (15-37) 10/24/16 20:00 ALT 15 U/L (12-78) 10/24/16 20:00 Alkaline Phosphatase 73 U/L (45-117) D 10/24/16 20:00 Total Protein 5.2 g/dl (6.4-8.2) L D 10/24/16 20:00 Albumin 2.5 g/dl (3.4-5.0) L D 10/24/16 20:00 IMAGING: EXAM: CXR IMPRESSION: No acute cardiopulmonary disease is present. ASSESSMENT AND PLAN: Being admitted for hypovolemic shock - IVF Normal saline 1000 CC, continue at 150 CC - Shock values - If challenge fluids do not hold up place on oppressor - Check cortisol level in AM - Insulin sliding scale - Occult blood testing - Monitor I&Os - ECHO - Repeat CBC 6 hours from last one - Transfusion if Hgb less than 7 - Type and Screen - ICU consult - ICU admit for overnight managment DVT ppx -SCD boots Documentation prepared by Jackelin Balderas, acting as medical transcription radiology for Gifty Story M.D.
--- NOTE | 2016-10-24 23:28 | HP ---
CHIEF COMPLAINT: Was sent from detox for low blood pressure 60/30 mmHg PCP: Doesn't remember the name HISTORY OF PRESENT ILLNESS: Patient is a 55 year old female was sent from [facility] detox for low blood pressure 60/30 mmHg. A/c to the patient, she had nausea, vomiting and diarrhoea since 3 days. (Unable to explain in depth since she was drowsy but arousable). Patient was in the detox since 10/20/2016 and was sent to the ED after they found her to be very hypotensive. Patient mentioned that she has been cracking cocaine and snorting heroine almost everyday, last took on 10/20/2016. Has been taking it since 2 years due to midlife crisis. Patient mentioned that she has a h/o anxiety and depression and is on medication. Doesn't remember the name of her doctor. Also reports she took shots every month for discoid lupus but stopped taking it 4 months ago. Denies nausea or vomiting at this time, no abdominal pain, chest pain, fever, chills, rigors or sweating. Bowel/Bladder habit normal. Sleep-more than usual Appetite decreased. ER course was notable for: (1) BP-71/48 mmHg; Slight leukocytosis 10.3; Creatinine 1.3; RBS-245; corrected kiesha-8.2 (2) ECG 59, no std/sharri, normal axis, normal interlva,s QTC 483 msec (3) Patient received IV NS almost 5L, 1PRBC, Vancomycin, Zosyn, 125 solumedrol Recent Travel: PAST MEDICAL HISTORY: asthma, diabetes, lupus (noncompliant with steroids), COPD and polysubstance abuse (alcohol/opiates/cocaine) PAST SURGICAL HISTORY: Left Foot Surgery s/p fracture (2008); Appendectomy ( 2009). Social History: Smoking:Current everyday smoker, 3 cigs/day Alcohol:Alcohol abuse (beer) - since age 16, 40 oz daily Drugs: cocaine abuse - since age 50, daily; heroin abuse - since age 53, daily Family History: Allergies cefuroxime axetil [From Ceftin] Allergy (Severe, Verified 10/24/16 19:02) fever convulsions cephalexin monohydrate [From Keflex] Allergy (Severe, Verified 10/24/16 19:02) fever convulsions moxifloxacin HCl [From Avelox] Allergy (Severe, Verified 10/24/16 19:02) Rash HOME MEDICATIONS: Home Medications Medication Instructions Recorded Insulin Aspart [Novolog Flexpen] 0 unit SQ TIDCM 06/27/16 Insulin Glargine,Hum.rec.anlog 15 units SQ HS 06/27/16 [Lantus Solostar PEN -] REVIEW OF SYSTEMS CONSTITUTIONAL: Present: generalized weakness Absent: fever, chills, diaphoresis, malaise, loss of appetite, weight change HEENT: Absent: rhinorrhea, nasal congestion, throat pain, throat swelling, difficulty swallowing, mouth swelling, ear pain, eye pain, visual changes CARDIOVASCULAR: Absent: chest pain, syncope, palpitations, irregular heart rate, lightheadedness , peripheral edema RESPIRATORY: Absent: cough, shortness of breath, dyspnea with exertion, orthopnea, wheezing, stridor, hemoptysis GASTROINTESTINAL: Absent: abdominal pain, abdominal distension, nausea, vomiting, diarrhea, constipation, melena, hematochezia GENITOURINARY: Absent: dysuria, frequency, urgency, hesitancy, hematuria, flank pain, genital pain MUSCULOSKELETAL: Absent: myalgia, arthralgia, joint swelling, back pain, neck pain SKIN: Absent: rash, itching, pallor HEMATOLOGIC/IMMUNOLOGIC: Absent: easy bleeding, easy bruising, lymphadenopathy, frequent infections ENDOCRINE: Absent: unexplained weight gain, unexplained weight loss, heat intolerance, cold intolerance NEUROLOGIC: Absent: headache, focal weakness or paresthesias, dizziness, unsteady gait, seizure, mental status changes, bladder or bowel incontinence PSYCHIATRIC: Absent: anxiety, depression, suicidal or homicidal ideation, hallucinations. PHYSICAL EXAMINATION Vital Signs - 24 hr 10/24/16 10/24/16 21:45 22:32 Pulse Rate [ 62 59 L Right Radial] Respiratory 18 19 Rate Blood Pressure 95/61 89/63 [Left Arm] O2 Sat by Pulse 100 100 Oximetry (%) GENERAL: Moderately built female, drowsy but arousable, Awake, alert, and fully oriented, in no acute distress, nasal canula in place HEAD: Normal with no signs of trauma. EYES:EOM intact, no pallor or icterus. EARS, NOSE, THROAT: Ears normal. Moist mucous membranes. NECK: Normal range of motion, supple without lymphadenopathy, JVD, or masses. LUNGS: Breath sounds equal, clear to auscultation bilaterally. No wheezes, and no crackles. No accessory muscle use. HEART: Regular rate and rhythm, normal S1 and S2 without murmur, rub or gallop. ABDOMEN: Soft, nontender, not distended, normoactive bowel sounds, no guarding, no rebound, no masses. No hepatomegaly or splenomegaly. MUSCULOSKELETAL: Normal range of motion at all joints. No bony deformities or tenderness. No CVA tenderness. UPPER EXTREMITIES: 2+ pulses, warm, well-perfused. No cyanosis. No clubbing. Cap refill <2 seconds. No peripheral edema. LOWER EXTREMITIES: 2+ pulses, warm, well-perfused. No calf tenderness. No peripheral edema. NEUROLOGICAL: Cranial nerves II-XII intact. Normal speech. Gait not observed. PSYCHIATRIC: Cooperative. Poor eye contact. Appropriate mood and affect. SKIN: Warm, dry, normal turgor, no rashes or lesions noted. Laboratory Results - last 24 hr 10/24/16 21:45 Stool Occult Blood Negative ASSESSMENT/PLAN: Patient is a 55 year old female with the significant past medical hx of asthma, diabetes, lupus (noncompliant with steroids), COPD and polysubstance abuse ( alcohol/opiates/cocaine) was sent from [facility] detox for low blood pressure 60 /30 mmHg who was in the detox since 10/20/2016. # Most likely Septic shock-unknown etiology Patient presented with low blood pressure 71/48, rest of the vitals, unremarkable Slight leukocytosis 10.3; Creatinine 1.3; RBS-245; corrected kiesha-8.2 ECG 59, no std/sharri, normal axis, normal interlva,s QTC 483 msec In the ED, sepsis protocol was started and she received IV NS almost 5L, 1PRBC, Vancomycin, Zosyn, Admitted in the ICU IV fluids to be maintained at 150mls/hr Blood culture, urine culture report pending Repeat routine labs for tomorrow including CXR R/O UTI, pneumonia, bacteremia Would consider continuing antibiotics unless the cause is known Monitor vitals closely If blood pressure doesn't improve, would consider using pressors. Echo ordered for tomorrow # Polysubstance abuse Patient was in detox, now in tapering dose of methadone 20mg--->15mg--->now 10mg Daily If withdrawal, would consider giving 10mg of Methadone Dr. Keagan Allison consult placed # Acute Kidney Injury-most likely due to hypovolemia Creatinine 1.5, baseline-1 (10/23/2016) IV fluids Avoid Nephrotoxic drugs # Qlgreh-Fh-80.6- Most likely dilutional Rapid drop in H/H 14.4/44.5 ---->10.6/32.5 Since patient received 5L of fluids in the ED, most likely dilutional # Discoid lupus-non compliant to medication Takes shots every month, last shot taken 4months ago Patient received 125 solumedrol Cortisol ordered for am # Diabetes Finger stick monitoring Insulin sliding scale-has to be very careful in using it as she is in possible septic shock Watch for hypoglycemic episdoes Diabetic diet # COPD-stable No symptoms at this time # FEN IV NS @ 150 mls/hr Electrolytes to be repeated tomorrow Diabetic diet # Prophylaxis For DVT- Heparin 5000U BID For GI: Not indicated # Code status: Full Code # Dispo: Admitted in the ICU. Duration of stay unknown. Illness, Investigation and plan of care explained to the patient. She verbalized understanding. Case seen and discussed with Dr. Story. Visit type - Emergency Visit Emergency Visit: Yes ED Registration Date: 10/24/16 Care time: The patient presented to the Emergency Department on the above date and was hospitalized for further evaluation of their emergent condition. - New Patient This patient is new to me today: Yes Date on this admission: 10/24/16 - Critical Care Critical Care patient: No
[2016-10-24 23:30] VITALS: BMI 25.2
--- NOTE | 2016-10-24 23:38 | CONSULT ---
Consult Consult Specialty:: PULM/CRITICAL CARE MEDICINE Referred by:: Dr Callaway Reason for Consultation:: hypotension, metabolic disarray - History of Present Illness Chief Complaint: hypotension, nausea, vomiting History of Present Illness: 55 y/o woman with SLE (not on steroids for >1year), Asthma (mild), poly- substance abuser (crack, EtOH, Heroin) presents to the ED from [facility] with 3 days of nausea/vomiting/diarrhea, fever, chills, found to be hypotensive to the 60s systolic. Of note, she uses about half a bundle of Heroin per day (5 bags), on Thursday she used 3 bags, Thursday 2 bags prior to entering detox at [facility]. On Thursday she was given 20mg of Methadone in addition to her taking 2 bags of Heroin. Thursday she began a taper and received 15mg of Methadone. That same day she developed withdrawal-like symptoms. She continued a 5mg/day taper for the rest of the week with worsening symptoms. On arrival in the ED she was hypotensive (60s/30s) , had LEONARDA, nl lactate, K was 3.7. She was given 6L of IVF with some improvement. She was transferred to the ICU for further management. - History Source History Provided By: Patient, Medical Record Limitations to Obtaining History: No Limitations - Past Medical History Pulmonary: Yes: Asthma, COPD, Other (smoker) ...: No Psych: Yes: Addictions (PSA) Rheumatology: Yes: Lupus - Past Surgical History Past Surgical History: Yes: Appendectomy - Alcohol/Substance Use Hx Alcohol Use: Yes - Smoking History Smoking history: Current every day smoker Have you smoked in the past 12 months: Yes Aproximately how many cigarettes per day: 3 - Social History Usual Living Arrangement: Alone ADL: Independent History of Recent Travel: No Home Medications - Allergies Allergies/Adverse Reactions: Allergies Allergy/AdvReac Type Severity Reaction Status Date / Time cefuroxime axetil Allergy Severe fever Verified 10/24/16 19:02 [From Ceftin] cephalexin monohydrate Allergy Severe fever Verified 10/24/16 19:02 [From Keflex] moxifloxacin HCl Allergy Severe Rash Verified 10/24/16 19:02 [From Avelox] - Home Medications Home Medications: Ambulatory Orders Insulin Aspart [Novolog Flexpen] 0 unit SQ TIDCM 06/27/16 Insulin Glargine,Hum.rec.anlog [Tammi Hedrick PEN -] 15 units SQ HS 06/27/16 Family Disease History - Family Disease History Family Disease History: Diabetes: Sister Review of Systems - Review of Systems Constitutional: reports: Chills, Fever Eyes: reports: No Symptoms HENT: reports: No Symptoms Neck: reports: No Symptoms Cardiovascular: reports: No Symptoms Respiratory: reports: No Symptoms Gastrointestinal: reports: Abdominal Pain, Diarrhea, Nausea, Vomiting Genitourinary: reports: No Symptoms Musculoskeletal: reports: No Symptoms Neurological: reports: No Symptoms Endocrine: reports: No Symptoms Psychiatric: reports: No Symptoms Physical Exam Vital Signs: Vital Signs Temperature Pulse Rate 59 L 10/24/16 22:32 Respiratory Rate 19 10/24/16 22:32 Blood Pressure 89/63 10/24/16 22:32 O2 Sat by Pulse Oximetry (%) 100 10/24/16 22:32 Constitutional: Yes: Well Nourished, Calm Eyes: Yes: WNL HENT: Yes: WNL Neck: Yes: WNL Cardiovascular: Yes: Regular Rate and Rhythm Respiratory: Yes: WNL Gastrointestinal: Yes: WNL Musculoskeletal: Yes: WNL Extremities: Yes: WNL Edema: No Integumentary: Yes: WNL Neurological: Yes: WNL ...Motor Strength: WNL Psychiatric: Yes: WNL Labs: CBC, BMP 10/24/16 20:00 10/24/16 20:00 Imaging - Results Chest X-ray: Report Reviewed, Image Reviewed Assessment/Plan Hypovolemic shock LEONARDA Opiate withdrawal Chronic opiate dependance Asthma -IVF -PRN Zofran -Monitor electrolytes -Will give 20mg of Methadone now and a biologics specialist should be consulted tomorrow -Diet as tolerated -d/c abx - does not appear to be infected -No need for stress steroids Monitor in ICU tonight and transfer to floor tomorrow if stable Thank you for this interesting consult Derek Love Pulm/Critical Care ALMOND HULLER
[2016-10-24] MEDS ORDERED: METHADONE HCL 10 MG TABLET PO ONE (23:47)
[2016-10-25] MEDS: HEPARIN NA (PORCINE) 5,000 UNITS/ML 1ML VIAL SQ SCH ×2 (00:11→09:39)
[2016-10-25] MEDS ORDERED: SODIUM CHLORIDE 1,000 ML IV SCH (05:07)
--- NOTE | 2016-10-25 06:15 | PN ---
Progress Note (short form) - Note Progress Note: PULM/CRITICAL CARE MEDICINE PROGRESS NOTE: Pt seen and examined in the ICU Events: BPs improved, stable overnight, good UOP, tolerating PO diet Current Medications Chlorhexidine Gluconate (Hibiclens For Decolonization -) 1 applic TP HS TRUE Heparin Sodium (Porcine) (Heparin -) 5,000 unit SQ BID TRUE Last Admin: 10/25/16 00:11 Dose: 5,000 unit Sodium Chloride (Normal Saline -) 1,000 mls @ 100 mls/hr IV ASDIR TRUE Insulin Aspart (Novolog Vial Sliding Scale -) 1 vial SQ ACHS TRUE PRN Reason: Protocol Mupirocin (Bactroban Ointment (For Decolonization) -) 1 applic NS BID TRUE Stop: 10/30/16 09:59 Vital Signs Temp 98.5 F 10/25/16 00:17 Pulse 72 10/25/16 04:00 Resp 18 10/25/16 04:00 BP 140/69 10/25/16 04:00 Pulse Ox 100 10/25/16 00:33 Intake & Output 10/24/16 10/24/16 10/25/16 06:59 18:59 06:59 Intake Total 1000 Output Total 1500 Balance -500 Weight 62.737 kg Intake: IV 1000 Normal Saline - 1,000 ml 1000 @ 1000 mls/hr IV ASDIR STA Rx#:[id number] Output: Urine 1500 Void 1500 Other: Voiding Method Bedpan Height 5 ft 2 in Body Mass Index (BMI) 25.2 Weight Measurement Method Built in [facility] Weight Measurement Method Est/Stated by Patient CBC, BMP 10/24/16 20:00 EXAM: Neruo: alert HENNT: PERRL Lungs: clear Heart: RRR Abd: soft, non-tender Ext: no edema, warm Skin: warm, dry CXR: clear lungs ASSESSMENT/PLAN: Hypovolemic shock resolved LEONARDA improving Opiate withdrawal Chronic opiate dependance Asthma -IVF -PRN Zofran -Monitor electrolytes -Slow Methadone taper -Substance abuse consult -Diet as tolerated -d/c abx - does not appear to be infected -No need for stress steroids Transfer to floor today 35min Derek Love Pulm/Critical Care DOCUMENT PROCESSING SPECIALIST
[2016-10-25] MEDS: INSULIN SLIDING SCALE (NOVOLOG) 1 VIAL SQ SCH ×2 (06:24→11:16)
[2016-10-25 06:38] LABS: MAGNESIUM 1.6 mg/dL (1.8-2.4); PHOSPHOROUS 3.9 mg/dL (2.5-4.9)
[2016-10-25 07:29] LABS: BASOPHIL 0.3 % (0-2.0); MCH 27.2 pg (25.7-33.7); MCHC 32.7 g/dl (32.0-36.0); MEAN CELL VOLUME 83.3 fl (80-96); MEAN PLT VOLUME 9.3 fl (7.5-11.1); PLATELET COUNT 191 K/MM3 (134-434); RDW 14.2 % (11.6-15.6); WHITE BLOOD COUNT 8.4 K/mm3 (4.0-10.0)
[2016-10-25 09:18] LABS: ANION GAP 9 (8-16); CALCIUM 8.4 mg/dL (8.5-10.1); CO2 23 mmol/L (21-32); CREATININE 0.9 mg/dL (0.55-1.02); SGOT/AST 21 U/L (15-37); SGPT/ALT 22 U/L (12-78)
[2016-10-25 09:21] LABS: ALK PHOS 94 U/L (45-117); BILIRUBIN,TOTAL 0.3 mg/dL (0.2-1.0); TOT PROT 6.2 g/dl (6.4-8.2)
[2016-10-25 09:29] LABS: GLUCOSE,RANDOM 359 mg/dL (74-106)
[2016-10-25] MEDS ORDERED: MUPIROCIN 2% TOPICAL OINTMENT FOR DECOLONIZATION NS SCH (10:00)
[2016-10-25] MEDS ORDERED: METHADONE HCL 5 MG TABLET PO ONE (10:29)
--- NOTE | 2016-10-25 10:39 | PN ---
S Progress Note (SOAP) Subjective: Pt. was transferred to med/surg because of hypotension. Objective: 10/25/16 10:37 Vital Signs - 24 hr 10/24/16 10/24/16 10/24/16 19:02 19:45 20:15 Temperature Pulse Rate 65 Pulse Rate [ 55 L 57 L Right Radial] Respiratory 20 19 19 Rate Blood Pressure 65/51 Blood Pressure 71/48 86/66 [Left Arm] O2 Sat by Pulse 100 100 100 Oximetry (%) 10/24/16 10/24/16 10/24/16 20:45 20:46 21:15 Temperature Pulse Rate Pulse Rate [ 59 L 60 Right Radial] Respiratory 19 19 Rate Blood Pressure Blood Pressure 87/55 81/57 [Left Arm] O2 Sat by Pulse 100 100 100 Oximetry (%) 10/24/16 10/24/16 10/24/16 21:38 21:45 22:32 Temperature 97.8 F Pulse Rate 59 L Pulse Rate [ 62 59 L Right Radial] Respiratory 21 18 19 Rate Blood Pressure 120/68 Blood Pressure 95/61 89/63 [Left Arm] O2 Sat by Pulse 100 100 Oximetry (%) 10/25/16 10/25/16 10/25/16 00:17 00:33 02:00 Temperature 98.5 F Pulse Rate 64 74 Pulse Rate [ Right Radial] Respiratory 15 12 16 Rate Blood Pressure 109/36 155/81 Blood Pressure [Left Arm] O2 Sat by Pulse 100 Oximetry (%) 10/25/16 10/25/16 10/25/16 04:00 06:00 08:00 Temperature 98.1 F Pulse Rate 72 60 55 L Pulse Rate [ Right Radial] Respiratory 18 12 18 Rate Blood Pressure 140/69 93/67 91/66 Blood Pressure [Left Arm] O2 Sat by Pulse Oximetry (%) 10/25/16 08:55 Temperature Pulse Rate Pulse Rate [ Right Radial] Respiratory 18 Rate Blood Pressure Blood Pressure [Left Arm] O2 Sat by Pulse 100 Oximetry (%) Laboratory Results - last 24 hr 10/24/16 10/24/16 10/24/16 20:00 20:00 20:00 WBC 8.9 RBC 3.88 D Hgb 10.6 L D Hct 32.5 D MCV 83.9 MCHC 32.6 RDW 14.4 Plt Count 158 D MPV 9.1 Neutrophils % 58.1 Lymphocytes % 31.5 Monocytes % 9.9 Eosinophils % 0.2 D Basophils % 0.3 INR 1.16 H PTT (Actin FS) 25.5 L VBG pH POC VBG pCO2 POC VBG pO2 Mixed VBG HCO3 Sodium 137 Potassium 3.7 Chloride 103 Carbon Dioxide 24 Anion Gap 10 BUN 24 H Creatinine 1.5 H D Creat Clearance w eGFR 35.79 Random Glucose 245 H D Hemoglobin A1c % Lactic Acid Calcium 7.0 L D Phosphorus Magnesium Total Bilirubin 0.3 D AST 16 ALT 15 Alkaline Phosphatase 73 D Creatine Kinase 426 H CK-MB (CK-2) < 1.000 Troponin I < 0.02 Total Protein 5.2 L D Albumin 2.5 L D Urine Color Urine Appearance Urine pH Ur Specific Margaret Urine Protein Urine Glucose (UA) Urine Ketones Urine Blood Urine Nitrite Urine Bilirubin Urine Urobilinogen Ur Leukocyte Esterase Urine RBC Urine WBC Ur Epithelial Cells Urine Bacteria Urine Mucus Stool Occult Blood Blood Type Antibody Screen 10/24/16 10/24/16 10/24/16 20:00 20:00 20:05 WBC RBC Hgb Hct MCV MCHC RDW Plt Count MPV Neutrophils % Lymphocytes % Monocytes % Eosinophils % Basophils % INR PTT (Actin FS) VBG pH 7.28 L POC VBG pCO2 56.2 H POC VBG pO2 23.4 L Mixed VBG HCO3 25.3 H Sodium Potassium Chloride Carbon Dioxide Anion Gap BUN Creatinine Creat Clearance w eGFR Random Glucose Hemoglobin A1c % Lactic Acid 1.838 Calcium Phosphorus Magnesium Total Bilirubin AST ALT Alkaline Phosphatase Creatine Kinase CK-MB (CK-2) Troponin I Total Protein Albumin Urine Color Urine Appearance Urine pH Ur Specific Margaret Urine Protein Urine Glucose (UA) Urine Ketones Urine Blood Urine Nitrite Urine Bilirubin Urine Urobilinogen Ur Leukocyte Esterase Urine RBC Urine WBC Ur Epithelial Cells Urine Bacteria Urine Mucus Stool Occult Blood Blood Type O POSITIVE Antibody Screen Negative 10/24/16 10/24/16 10/25/16 20:30 21:45 05:20 WBC 8.4 RBC 4.53 Hgb 12.3 D Hct 37.7 D MCV 83.3 MCHC 32.7 RDW 14.2 Plt Count 191 D MPV 9.3 Neutrophils % 86.0 H D Lymphocytes % 10.1 D Monocytes % 3.6 L Eosinophils % 0.0 D Basophils % 0.3 INR PTT (Actin FS) VBG pH POC VBG pCO2 POC VBG pO2 Mixed VBG HCO3 Sodium Potassium Chloride Carbon Dioxide Anion Gap BUN Creatinine Creat Clearance w eGFR Random Glucose Hemoglobin A1c % Lactic Acid Calcium Phosphorus Magnesium Total Bilirubin AST ALT Alkaline Phosphatase Creatine Kinase CK-MB (CK-2) Troponin I Total Protein Albumin Urine Color Ltyellow Urine Appearance Clear Urine pH 6.0 Ur Specific Margaret 1.012 Urine Protein 1+ H Urine Glucose (UA) 3+ H D Urine Ketones Negative Urine Blood Negative Urine Nitrite Negative Urine Bilirubin Negative Urine Urobilinogen Negative Ur Leukocyte Esterase Negative Urine RBC 1 Urine WBC 3 Ur Epithelial Cells Rare Urine Bacteria Rare Urine Mucus Rare Stool Occult Blood Negative Blood Type Antibody Screen 10/25/16 10/25/16 10/25/16 05:20 05:20 05:35 WBC RBC Hgb Hct MCV MCHC RDW Plt Count MPV Neutrophils % Lymphocytes % Monocytes % Eosinophils % Basophils % INR PTT (Actin FS) VBG pH POC VBG pCO2 POC VBG pO2 Mixed VBG HCO3 Sodium 135 L Cancelled Potassium 4.8 D Cancelled Chloride 103 Cancelled Carbon Dioxide 23 Cancelled Anion Gap 9 Cancelled BUN 17 D Cancelled Creatinine 0.9 D Cancelled Creat Clearance w eGFR > 60 Cancelled Random Glucose 359 H* D Cancelled Hemoglobin A1c % 10.1 H Lactic Acid Calcium 8.4 L Cancelled Phosphorus 3.9 Magnesium 1.6 L Total Bilirubin 0.3 Cancelled AST 21 D Cancelled ALT 22 D Cancelled Alkaline Phosphatase 94 D Cancelled Creatine Kinase CK-MB (CK-2) Troponin I Total Protein 6.2 L Cancelled Albumin 3.0 L Cancelled Urine Color Urine Appearance Urine pH Ur Specific Margaret Urine Protein Urine Glucose (UA) Urine Ketones Urine Blood Urine Nitrite Urine Bilirubin Urine Urobilinogen Ur Leukocyte Esterase Urine RBC Urine WBC Ur Epithelial Cells Urine Bacteria Urine Mucus Stool Occult Blood Blood Type Antibody Screen labs noted Assessment: 10/25/16 10:38 opioid dependence Hypotension,resolved Plan: Give mehadone 5mg today,last dose.
[2016-10-25 11:41] VITALS: TEMP 97.6
[2016-10-25 11:42] VITALS: BP 107/55; PULSE 55
--- NOTE | 2016-10-25 12:08 | DS ---
Physical Exam: SUBJECTIVE: Patient seen and examined. currently asymptomatic. states that she was having significant vomiting for several days. c.o lethargy at the faciltity. noted that her BP was continuously going down. states that she has not been on steroids in over a year for her SLE. denies CP, SOB,fever, chills, N /V/C/D OBJECTIVE: Vital Signs Period Temp Pulse Resp BP Sys/James Pulse Ox Last 24 Hr 97.6 F-98.5 F 55-74 12-24 89-155/36-81 100-100 PHYSICAL EXAM GENERAL: The patient is awake, alert, and fully oriented, in no acute distress. +disheveled HEAD: Normal with no signs of trauma. EYES: PERRL, extraocular movements intact, sclera anicteric, conjunctiva clear. ENT: Ears normal, nares patent, oropharynx clear without exudates, moist mucous membranes. NECK: Trachea midline, full range of motion, supple. LUNGS: Breath sounds equal, clear to auscultation bilaterally, no wheezes, no crackles, no accessory muscle use. HEART: Regular rate and rhythm, S1, S2 without murmur, rub or gallop. ABDOMEN: Soft, nontender, nondistended, normoactive bowel sounds, no guarding, no rebound, no hepatosplenomegaly, no masses. EXTREMITIES: 2+ pulses, warm, well-perfused, no edema. NEUROLOGICAL: Cranial nerves II through XII grossly intact. Normal speech, gait not observed. PSYCH: Normal mood, normal affect. SKIN: Warm, dry, normal turgor, no rashes or lesions noted. LABS Laboratory Results - last 24 hr 10/24/16 10/25/16 10/25/16 21:45 05:20 05:20 WBC 8.4 RBC 4.53 Hgb 12.3 D Hct 37.7 D MCV 83.3 MCHC 32.7 RDW 14.2 Plt Count 191 D MPV 9.3 Neutrophils % 86.0 H D Lymphocytes % 10.1 D Monocytes % 3.6 L Eosinophils % 0.0 D Basophils % 0.3 Sodium 135 L Potassium 4.8 D Chloride 103 Carbon Dioxide 23 Anion Gap 9 BUN 17 D Creatinine 0.9 D Creat Clearance w eGFR > 60 Random Glucose 359 H* D Hemoglobin A1c % Calcium 8.4 L Phosphorus 3.9 Magnesium 1.6 L Total Bilirubin 0.3 AST 21 D ALT 22 D Alkaline Phosphatase 94 D Total Protein 6.2 L Albumin 3.0 L Stool Occult Blood Negative 10/25/16 10/25/16 05:20 05:35 WBC RBC Hgb Hct MCV MCHC RDW Plt Count MPV Neutrophils % Lymphocytes % Monocytes % Eosinophils % Basophils % Sodium Cancelled Potassium Cancelled Chloride Cancelled Carbon Dioxide Cancelled Anion Gap Cancelled BUN Cancelled Creatinine Cancelled Creat Clearance w eGFR Cancelled Random Glucose Cancelled Hemoglobin A1c % 10.1 H Calcium Cancelled Phosphorus Magnesium Total Bilirubin Cancelled AST Cancelled ALT Cancelled Alkaline Phosphatase Cancelled Total Protein Cancelled Albumin Cancelled Stool Occult Blood HOSPITAL COURSE: Date of Admission:10/24/16 Date of Discharge: 10/25/16 Admitting diagnosis: hypovolemic shock. LEONARDA Pre-hospital course 55 year old female was sent from [facility] detox for low blood pressure 60/30 mmHg. A/c to the patient, she had nausea, vomiting and diarrhoea since 3 days. ( Unable to explain in depth since she was drowsy but arousable). Patient was in the detox since 10/20/2016 and was sent to the ED after they found her to be very hypotensive. Patient mentioned that she has been cracking cocaine and snorting heroine almost everyday, last took on 10/20/2016. Has been taking it since 2 years due to midlife crisis. Patient mentioned that she has a h/o anxiety and depression and is on medication. Doesn't remember the name of her doctor. Also reports she took shots every month for discoid lupus but stopped taking it 4 months ago. Denies nausea or vomiting at this time, no abdominal pain, chest pain, fever, chills, rigors or sweating. Bowel/Bladder habit normal. Sleep-more than usual Appetite decreased. Subsequent hospital course admitted to MICU for close cardiac and BP monitoring. bolus IVF and started on aztreonam and Vanco. clinically pt imrpoved. BP responded to IVF. LEONARDA resolved. mental status returned to baseline. evaluated by detox and given final dose of methadone. pt stated she wanted to sign out AMA. informed of risks of leaving including cardiac arrest and . counseled on risks if she continues to start using illicit substances and encouraged to stay clean. verbalized understanding of these risks and desire to go home. signed out AMA. Minutes to complete discharge: 40 Discharge Summary Reason For Visit: HYPOTENSION Current Active Problems Acute kidney injury (Acute) Hypotension (Acute) - Home Medications Comprehensive Discharge Medication List: Ambulatory Orders Insulin Aspart [Novolog Flexpen] 0 unit SQ TIDCM 06/27/16 Insulin Glargine,Hum.rec.anlog [Lantus Solostar PEN -] 15 units SQ HS 06/27/16 This patient is new to me today: Yes Date on this admission: 10/25/16 Emergency Visit: Yes ED Registration Date: 10/24/16 Care time: The patient presented to the Emergency Department on the above date and was hospitalized for further evaluation of their emergent condition. Critical Care patient: Yes Total Critical Care Time (in minutes): 40 Critical Care Statement: The care of this patient involved high complexity decision making to prevent further life threatening deterioration of the patient 's condition and/or to evalute & treat vital organ system(s) failure or risk of failure. - Discharge Referral Referred to [facility] No
--- NOTE | 2016-10-25 14:45 | EKG ---
Test Reason : Blood Pressure : / mmHG Vent. Rate : 059 BPM Atrial Rate : 059 BPM P-R Int : 170 ms QRS Dur : 084 ms QT Int : 488 ms P-R-T Axes : 044 034 050 degrees QTc Int : 483 ms SINUS BRADYCARDIA WITH PREMATURE ATRIAL COMPLEXES PROLONGED QT ABNORMAL ECG WHEN COMPARED WITH ECG OF 20-OCT-2016 18:03, PREMATURE ATRIAL COMPLEXES ARE NOW PRESENT Confirmed by WESLEY ART MD ([id number]) on 10/25/2016 2:45:27 PM Referred By: Confirmed By:WESLEY ART MD
[2016-10-25] MEDS ORDERED: CHLORHEXIDINE GLUCONATE 4% CLEANSER FOR DECOLONIZATION TP SCH (22:00)
== END 2016-10-25 12:37 | disposition left against medical advice (07) | DRG 460 ==
LOC: JER 18:56 → JICU 21:38
PROVIDERS: ADMIT Internal Medicine; ATTEND Internal Medicine
DX: N17.9 Acute kidney failure, unspecified (principal); R57.1 Hypovolemic shock; E11.9 Type 2 diabetes mellitus without complications; J44.9 Chronic obstructive pulmonary disease, unspecified; F11.23 Opioid dependence with withdrawal; J45.909 Unspecified asthma, uncomplicated; Z79.4 Long term (current) use of insulin; F17.210 Nicotine dependence, cigarettes, uncomplicated; D64.9 Anemia, unspecified
CPT/HCPCS: 36415; 71010-TC; 80053; 81003; 81015; 82272; 82533; 82550; 82553; 82803; 83036; 83605; 83735; 84100; 84484; 85025; 85027; 85610; 85730; 86850; 86900; 86901; 87040; 87086; 93005; 93010; 99285-25; J1644